=== PATIENT | male | born 1965 | race Caucasian/White ===

== ENCOUNTER 2016-07-16 08:00 | Emergency (ER) | payer OTHER ==
--- NOTE | 2016-07-16 08:27 | ED ---
General Adult HPI - General Chief complaint: Chest Pain Stated complaint: rt side pain from fall Time Seen by Provider: 07/16/16 08:19 Source: patient, RN notes reviewed Mode of arrival: ambulatory Limitations: no limitations - History of Present Illness Initial comments: 50-year-old male presents emergency Department chief complaint right-sided rib, chest pain. Patient states that he fell one week ago and states that he thought the pain would just dissipate but states it hasn't. 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 Patient states it was a mechanical fall. Patient states she has pain with deep inspiration and states he now has a productive cough. Patient denies fever, chills, night sweats. Patient denies any palpitations or syncopal episodes. Patient states he has extreme pain with deep inspiration the right side along his right lateral aspect of the ribs. Patient denies any abdominal pain including nausea , vomiting, diarrhea constipation. Patient denies any ecchymosis. Patient states he was waiting for some bruising but states that he never visualized any. - Related Data Home Medications Medication Instructions Recorded Confirmed Atenolol [Tenormin] 50 mg PO DAILY 07/05/15 07/16/16 Albuterol Inhaler [Ventolin Hfa 1 - 2 puff INHALATION RT-DAILY 07/16/16 07/16/16 Inhaler] Aspirin 81 mg PO DAILY 07/16/16 07/16/16 Beclomethasone Dipropionate [Qvar 1 puff INHALATION RT-BID 07/16/16 07/16/16 40 mcg] Ipratropium [place] [Atrovent Hfa] 2 puff INHALATION RT-TID 07/16/16 07/16/16 Previous Rx's Medication Instructions Recorded Hydrocodone/Acetaminophen [Aniwa 1 tab PO Q6HR PRN #20 tab 07/16/16 5-325] Allergies Allergy/AdvReac Type Severity Reaction Status Date / Time Sulfa (Sulfonamide Allergy Rash/Hives Verified 07/16/16 08:56 Antibiotics) Review of Systems ROS Statement: Those systems with pertinent positive or pertinent negative responses have been documented in the HPI. ROS Other: All systems not noted in ROS Statement are negative. Past Medical History Past Medical History: GERD/Reflux, Hypertension, Memory Impairment, Respiratory Disorder, Seizure Disorder, Sleep Apnea/CPAP/BIPAP History of Any Multi-Drug Resistant Organisms: None Reported Past Surgical History: No Surgical Hx Reported Additional Past Anesthesia/Blood Transfusion Reaction / Comment(s): PT STATES HE HAS NOT HAD ANY SURGERIES Past Psychological History: Anxiety, Depression Smoking Status: Current every day smoker Past Alcohol Use History: Rare Past Drug Use History: None Reported - Past Family History Father Family Medical History: Coronary Artery Disease (CAD), Hypertension, Vascular Disorder Mother Family Medical History: Coronary Artery Disease (CAD), Hypertension, Vascular Disorder General Exam Limitations: no limitations General appearance: alert, in no apparent distress Head exam: Present: atraumatic, normocephalic, normal inspection Neck exam: Present: normal inspection, full ROM. Absent: tenderness, meningismus, lymphadenopathy Respiratory exam: Present: normal lung sounds bilaterally, chest wall tenderness (Moderate tenderness to the right side of the ribs from the level of the nipple to the lower ribs), other (No rash noted on the chest wall, no ecchymosis). Absent: respiratory distress, wheezes, rales, rhonchi, stridor Cardiovascular Exam: Present: regular rate, normal rhythm, normal heart sounds. Absent: systolic murmur, diastolic murmur, rubs, gallop, clicks GI/Abdominal exam: Present: soft, normal bowel sounds. Absent: distended, tenderness, guarding, rebound, rigid Extremities exam: Present: normal inspection, full ROM, normal capillary refill. Absent: tenderness, pedal edema, joint swelling, calf tenderness Back exam: Present: full ROM. Absent: tenderness Neurological exam: Present: alert, oriented X3, CN II-XII intact, reflexes normal. Absent: motor sensory deficit Skin exam: Present: warm, dry, intact, normal color. Absent: rash Course Vital Signs 07/16/16 08:15 Temperature 97.9 F Pulse Rate 86 Respiratory 18 Rate Blood Pressure 152/102 O2 Sat by Pulse 90 L Oximetry Medical Decision Making - Medical Decision Making 50-year-old male presented for fall right rib pain. Patient has fractures through to fifth rib on the right. There is no evidence pneumothorax or secondary infection. Patient fall was one week ago and will be discharged with pain control, instructions for incentive spirometry. Return parameters were discussed. Patient's pulse ox was 90 on triage vitals is 97 on room air and is in no respiratory distress during exam Disposition Clinical Impression: Fall, Multiple rib fractures Disposition: HOME SELF-CARE Condition: Stable Instructions: Rib Fracture (ED) Additional Instructions: Please return to the Emergency Department if symptoms worsen or any other concerns. Prescriptions: Hydrocodone/Acetaminophen [Aniwa 5-325] 1 tab PO Q6HR PRN #20 tab PRN Reason: Pain Time of Disposition: 09:01
--- NOTE | 2016-07-16 08:49 | XR ---
EXAMINATION TYPE: XR ribs RT w pa chest xray DATE OF EXAM: 07/16/2016 8:41 AM COMPARISON: NONE HISTORY: Pain TECHNIQUE: Frontal view of the chest and 5 views of the ribs are submitted. FINDINGS: No sizable pneumothorax. Lungs are clear. There is a deformity of the anterior margin of th e right third rib. Oblique views demonstrate deformity involving the anterolateral right fourth and f ifth rib. IMPRESSION: 1. Findings compatible with mildly displaced fractures anterolateral right third through fifth ribs.
[2016-07-16 09:09] VITALS: BP 172/106; PULSE 78; RESP 16; TEMP 98.5
== END 2016-07-16 09:07 | disposition home or self-care (01) ==
LOC: EC 08:00
DX: S22.41XA Multiple fractures of ribs, right side, initial encounter for closed fracture (principal); I10 Essential (primary) hypertension; Z87.09 Personal history of other diseases of the respiratory system; F17.200 Nicotine dependence, unspecified, uncomplicated; Z82.49 Family history of ischemic heart disease and other diseases of the circulatory system; Z79.51 Long term (current) use of inhaled steroids; Z79.82 Long term (current) use of aspirin; Z79.899 Other long term (current) drug therapy; Z88.2 Allergy status to sulfonamides; W01.0XXA Fall on same level from slipping, tripping and stumbling without subsequent striking against object, initial encounter; Y92.481 Parking lot as the place of occurrence of the external cause
CPT/HCPCS: 99283

== ENCOUNTER 2016-09-22 14:12 | Emergency (ER) | payer OTHER ==
[2016-09-22] MEDS ORDERED: amLODIPine 5 MG TAB PO STA (15:05)
[2016-09-22 15:11] VITALS: RESP 16
--- NOTE | 2016-09-22 15:14 | ED ---
General Adult HPI - General Chief complaint: Recheck/Abnormal Lab/Rx Stated complaint: HBP/170/115 Time Seen by Provider: 09/22/16 14:54 Source: patient, RN notes reviewed, old records reviewed Mode of arrival: ambulatory Limitations: no limitations - History of Present Illness Initial comments: 50-year-old male presenting for evaluation of hypertension. Patient states that he was on the third floor pain clinic today where they found that his blood pressure was high and recommended he go to the ER for evaluation. He states that they were discussing doing nerve injections for his chronic neck and back pain they stated they would not do this due to his high blood pressure. Patient states that he has had 4 separate episodes at the pain clinic where he has been told the same thing that his blood pressure is high. He states he does follow with Dr. Sarkar, but has not recently followed with him regarding his hypertension. He is taking his hypertension medications which include atenolol and amlodipine. He denies any chest pain or shortness of breath or headache at this time. He states that he is not having any active symptoms. He does state that he has chronic back pain. He is not currently taking any medications for his back pain. - Related Data Home Medications Medication Instructions Recorded Confirmed Atenolol [Tenormin] 50 mg PO DAILY 07/05/15 09/22/16 Albuterol Inhaler [Ventolin Hfa 1 - 2 puff INHALATION RT-Q6H PRN 07/16/16 Inhaler] Beclomethasone Dipropionate [Qvar 2 puff INHALATION RT-BID 07/16/16 09/22/16 40 mcg] Ipratropium [place] [Atrovent Hfa] 2 puff INHALATION RT-QID 07/16/16 09/22/16 DULoxetine HCL [Cymbalta] 60 mg PO DAILY 09/22/16 09/22/16 amLODIPine BESYLATE [Amlodipine 5 mg PO DAILY 09/22/16 09/22/16 Besylate] Previous Rx's Medication Instructions Recorded traMADol HCl [Ultram] 50 mg PO Q8HR PRN #20 tab 09/22/16 Allergies Allergy/AdvReac Type Severity Reaction Status Date / Time Sulfa (Sulfonamide Allergy Rash/Hives Verified 09/22/16 14:18 Antibiotics) Review of Systems ROS Statement: Those systems with pertinent positive or pertinent negative responses have been documented in the HPI. ROS Other: All systems not noted in ROS Statement are negative. Past Medical History Past Medical History: COPD, GERD/Reflux, Hypertension, Memory Impairment, Respiratory Disorder, Seizure Disorder, Sleep Apnea/CPAP/BIPAP Additional Past Medical History / Comment(s): possible past mini strokes History of Any Multi-Drug Resistant Organisms: None Reported Past Surgical History: No Surgical Hx Reported Additional Past Anesthesia/Blood Transfusion Reaction / Comment(s): PT STATES HE HAS NOT HAD ANY SURGERIES Past Psychological History: Anxiety, Depression Smoking Status: Current every day smoker Past Alcohol Use History: Rare Past Drug Use History: None Reported - Past Family History Father Family Medical History: Coronary Artery Disease (CAD), Hypertension, Vascular Disorder Mother Family Medical History: Coronary Artery Disease (CAD), Hypertension, Vascular Disorder General Exam - General Exam Comments Initial Comments: General: Awake and Alert. No acute distress. Does not appear acutely ill. Eyes: YUDI, EOM intact. No nystagmus. No scleral icterus. HENT: Atraumatic, normocephalic. Mucous membranes moist. Trachea midline. Neck: The neck is supple, there is no anterior tenderness or JVD. Cardiovascular: Regular rate and rhythm. No murmur, rub, or gallop is appreciated. Distal pulses intact. Respiratory: Lungs are clear to auscultation bilaterally. No wheezes, rales, rhonchi. No respiratory distress. Gastrointestinal: Soft, Nontender. No rebound or guarding. Non-distended. No masses or organomegaly noted. No CVA tenderness. Musculoskeletal: As mild low back tenderness and neck tenderness. Otherwise on the exam with no tenderness. Normal ROM. No gross deformity. No strength deficits. Neurological: A&Ox3. CN II-XII grossly intact, There are no obvious motor or sensory deficits. Coordination appears grossly intact. Speech is normal. Skin: Skin is warm and dry and no rashes or lesions are noted. Psychiatric: Cooperative, appropriate mood & affect, normal judgment. Limitations: no limitations Course Vital Signs 09/22/16 09/22/16 09/22/16 14:15 15:10 15:45 Temperature 96.9 F L 98.7 F Pulse Rate 80 69 72 Respiratory 18 16 16 Rate Blood Pressure 180/89 172/99 167/108 O2 Sat by Pulse 97 96 95 Oximetry Medical Decision Making - Medical Decision Making 50-year-old male with history of chronic back pain presenting for hypertension. Patient does have a history of hypertension which is currently being treated with amlodipine and atenolol. Patient states that he has had follow-up with [facility] in the past but when he has followed with [facility] over the past year he has always had a normal blood pressure. He states he has been taken off of 2 of his his previous 4 medications over the past year. States that he has had 4 separate episodes of high blood pressure at pain clinic evaluations. He is not currently taking any pain medications for his chronic back pain. Patient with asymptomatic hypertension the ED at this time. Given he has known hypertension, he was given additional 5 mg dose of amlodipine. Discussed increasing this to 10 mg daily. Discussed close follow-up with Dr. Sarkar for further titration of his blood pressure medications a blood pressure recheck. Discussed continued follow-up with pain clinic for further pain management. Rx for tramadol was provided as he states this has helped with his pain in the past. Discussed concerning signs symptoms or immediate return to the ED. Patient is agreeable with plan and discharge home. Disposition Clinical Impression: Essential hypertension, Chronic back pain Disposition: HOME SELF-CARE Condition: Stable Instructions: Chronic Hypertension (ED), Chronic Back Pain (ED) Additional Instructions: Please increase your dose of Amlodipine to 10mg daily. Please follow up closely with Dr. Sarkar to manage your blood pressure. Prescriptions: traMADol HCl [Ultram] 50 mg PO Q8HR PRN #20 tab PRN Reason: Pain Referrals: Gertrude Sarkar MD [Primary Care Provider] - 1-2 days Time of Disposition: 15:39
[2016-09-22 15:47] VITALS: BP 167/108; PULSE 72; TEMP 98.7
== END 2016-09-22 15:47 | disposition home or self-care (01) ==
LOC: EC 14:12
DX: I10 Essential (primary) hypertension (principal); M54.9 Dorsalgia, unspecified; M54.2 Cervicalgia; J44.9 Chronic obstructive pulmonary disease, unspecified; F32.9 Major depressive disorder, single episode, unspecified; F41.9 Anxiety disorder, unspecified; F17.200 Nicotine dependence, unspecified, uncomplicated; Z79.51 Long term (current) use of inhaled steroids; Z79.899 Other long term (current) drug therapy; Z88.2 Allergy status to sulfonamides; Z82.49 Family history of ischemic heart disease and other diseases of the circulatory system
CPT/HCPCS: 99211; 99283

== ENCOUNTER → 2016-09-22 | Outpatient (CLI) | payer OTHER ==
[2016-09-22 13:14] VITALS: BP 170/115; PULSE 80; RESP 16; TEMP 97.7
--- NOTE | 2016-09-22 13:36 | P.PN ---
Progress Note - Text Patient returns for followup for chronic neck and low back pain with radiation to head and shoulders, and is complaining of weakness and heaviness in his lower extremities. Patient underwent cervical epidural steroid injection x [address] Walker and did not return after that. He was seen by Dr. Valera who did some occipital nerve blocks and some injections in his neck which did not help him. Patient does not use any opioid medications as he does not like them. . Patient also complains of pain in bilateral wrists and in his low back. Patient denies adverse drug effects from medications. Today, pt denies new-onset weakness, bowel/bladder incontinence, or any other signs or symptoms of cauda equina syndrome. There are no signs of acute intoxication, and no indications of medication diversion or overuse. In addition to above, 13-point review of systems is also negative for chest pain , shortness of breath, changes in vision, changes in hearing, new onset weakness , abdominal pain, diarrhea, extreme fatigue, malaise, fever, skin changes, homicidal or suicidal ideation, or bowel or bladder incontinence. 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 cervical spondylosis without myelopathy 2. cervicogenic headache 3. chronic pain syndrome Plan: 1. Explanation: Opioid and psychological risk scores were reviewed. Diagnoses , prognoses, and multiple treatment options including but not limited to physical therapy, interventional therapies, adjuvant medical therapies, narcotic medication therapies, and surgery were discussed with the patient and all questions were answered to the patient's satisfaction. 2. Opioid agreement: no opioids prescribed today 3. Counseling: The patient was counseled extensively on SMOKING CESSATION, BODY MASS INDEX, EXERCISE. Specifically, the patient was instructed regarding the importance of smoking cessation, obesity, and exercise in the context of both chronic pain and overall health. 4. Procedures: bilateral cervical MBB (C3-C4, C4-C5, C5-C6) 5. Consultations: None 6. Investigations: MRI lumbar spine without contrast and will refer to Dr. Sharif for EMG bilateral lower extremities 7. Medications: none prescribed 8. Disposition: f/u for procedure as scheduled. Patient has extremely high BP today and was advised to seek treatment in the emergency room. He was advised of all risks/benefits/alternatives to doing so, with risks including heart attack, stroke, paralysis, and possible . Patient verbalized understanding. PQRS measures: 1-Patient's medications are documented in the chart. 2-Tobacco use is positive, counseling given 3-Patient has not had a pneumococcal vaccine. 4-Advanced care planning discussed, patient unable to give. 5-Opioid contract NOT signed with the patient as no opioids prescribed. 6-Pain positive, follow-up visit or procedure scheduled 7-Patient's blood pressure measured and documented, and patient will follow up with the primary care due to hypertension. 8-Patient's weight was measured, and body mass index ABOVE the normal limits, and counseling was done. Patient instructed to follow up with PCP. 9-Patient WAS NOT identified as an unhealthy alcohol user.
== END | disposition home or self-care (01) ==
LOC: PNWHC3 12:31
PROVIDERS: ATTEND Anesthesiology
DX: M47.812 Spondylosis without myelopathy or radiculopathy, cervical region (principal); G89.4 Chronic pain syndrome
CPT/HCPCS: 99211

== ENCOUNTER → 2016-10-06 | Outpatient (CLI) | payer OTHER ==
--- NOTE | 2016-10-06 11:57 | MR ---
EXAMINATION TYPE: MR cervical spine wo con DATE OF EXAM: 10/06/2016 11:48 AM COMPARISON: NONE HISTORY: cervical spondylosis Multiplanar MultiSpin echo imaging of the cervical spine was performed. Comparison: 06/20/2015 C2-C3: No evidence for degenerative disc disease. No disc bulge/herniation or protrusion. No Canal stenosis. Foramina are patent bilaterally. C3-C4: There is evidence of mild disc desiccation. Posterocentral disc bulge with mild effacement of the ventral thecal sac. No evidence for cord contact or central stenosis. Degenerative change cervica l apophyseal joints resulting in mild right-sided foraminal encroachment. C4-C5: There is evidence of mild disc desiccation. Posterocentral disc bulge with mild effacement of the ventral thecal sac. No evidence for cord contact or central stenosis. Degenerative change cervica l apophyseal joints resulting in mild right-sided foraminal encroachment. C5-C6: Mild disc desiccation noted. Left paracentral small disc protrusion effaces the ventral thecal sac with minimal ventral CORD contact. No evidence for compressive myelopathy or central stenosis. M ild left-sided foraminal encroachment. C6-C7: Mild disc desiccation. Posterocentral disc protrusion mildly effaces the ventral thecal sac. N o evidence for kyleigh herniation or central stenosis. Mild right foraminal encroachment. C7-T1: No evidence for degenerative disc disease. No disc bulge/herniation or protrusion. No Canal stenosis. Foramina are patent bilaterally. Cervical segments are intact. There is normal alignment. Cervical spinal cord is of normal signal. Craniovertebral junction relationships are within normal limits. IMPRESSION: 1. Stable degenerative disc disease as discussed. 2. Disc bulging and protrusions as noted.
== END | disposition home or self-care (01) ==
LOC: RADMRIMAIN 11:02
PROVIDERS: ATTEND Anesthesiology
DX: M50.00 Cervical disc disorder with myelopathy, unspecified cervical region (principal); R51 Headache; M25.519 Pain in unspecified shoulder
CPT/HCPCS: 72141

== ENCOUNTER 2016-10-27 06:11 | Day surgery (SDC) | payer OTHER ==
[2016-10-23 10:06] VITALS: BMI 26.1
[~2016-10-27 06:11] MED LIST: LACTATED RINGERS 1,000 ML IV SCH
[2016-10-27 06:32] VITALS: TEMP 97.7
[2016-10-27] MEDS ORDERED: LIDOCAINE 1% 20 ML VIAL (10MG/ML) FOR IV START INTRADERMA ONE (06:36)
[2016-10-27] MEDS ORDERED: MIDAZOLAM 2 MG/2 ML VIAL ONE (07:12)
[2016-10-27] MEDS ORDERED: BUPIVACAINE (PF) 0.5% 30 ML VIAL ONE (07:12)
[2016-10-27] MEDS ORDERED: LACTATED RINGERS 1,000 ML IV SCH (07:30)
[2016-10-27] MEDS ORDERED: IV FLUID CONTINUATION 1,000 ML IV ONE (07:45)
--- NOTE | 2016-10-27 07:50 | P.PCN ---
Date of Procedure: 10/27/16 Preoperative Diagnosis: Cervical spondylosis without myelopathy Postoperative Diagnosis: Same as above Procedure(s) Performed: Bilateral cervical medial branch block for C4, C5, and C6 Implants: Anesthesia: other (Moderate sedation) Surgeon: Grace Preston Pathology: none sent Condition: stable Disposition: PACU Indications for Procedure: Operative Findings: Description of Procedure: The patient was seen in the preop holding area consent was obtained then he was brought into the procedure room and placed in the supine position. Skin was prepped with ChloraPrep and draped in a sterile manner. Lidocaine 1% was used to numb the skin up at the target points that were chosen as follows: The center of the trapezoid shaped articular pillars of C4, C5, and C6 vertebra were identified and skin was marked of these areas. I used 25-gauge 3-1/2 inch Quincke spinal needle to go through the skin and to contact bone at the target points mentioned above then I injected 0.5 MLS of 0.5% Marcaine at each level. The right side was done first and then the left side was done in the same manner. Patient tolerated procedure well. No changes in his neurological examination postoperatively. I did not use any steroids for this procedure. Patient received only 2 mg of Versed IV for sedation.
[2016-10-27 07:52] VITALS: RESP 18
--- NOTE | 2016-10-27 07:52 | FL ---
FLUOROSCOPY 9 seconds of fluoroscopy time were utilized during cervical facet injections. 6 images document the p rocedure.
[2016-10-27 08:01] VITALS: BP 145/85; PULSE 65
== END 2016-10-27 08:20 | disposition home or self-care (01) ==
LOC: ORPAIN 06:11
PROVIDERS: ATTEND Anesthesiology
DX: M47.812 Spondylosis without myelopathy or radiculopathy, cervical region (principal); Z88.2 Allergy status to sulfonamides
CPT/HCPCS: 64490; 64491; 64492; 99152; J2250

== ENCOUNTER 2016-11-24 07:54 | Day surgery (SDC) | payer OTHER ==
[2016-11-20 15:45] VITALS: BMI 26.1
[2016-11-24 08:22] VITALS: RESP 18; TEMP 97.5
[2016-11-24] MEDS ORDERED: LIDOCAINE 1% 20 ML VIAL (10MG/ML) FOR IV START INTRADERMA ONE (08:34)
[2016-11-24] MEDS ORDERED: fentaNYL (PF) 50 MCG/ML 2 ML AMP ONE (09:21)
[2016-11-24] MEDS ORDERED: DEXAMETHASONE SOD PHOS (MDV) 100 MG/10 ML VIAL ONE (09:21)
[2016-11-24] MEDS ORDERED: BUPIVACAINE (PF) 0.5% 30 ML VIAL ONE (09:21)
[2016-11-24] MEDS ORDERED: MIDAZOLAM 2 MG/2 ML VIAL ONE (09:21)
--- NOTE | 2016-11-24 09:53 | P.PCN ---
Date of Procedure: 11/24/16 Preoperative Diagnosis: Postoperative Diagnosis: Procedure(s) Performed: PREOPERATIVE DIAGNOSIS:1- Cervical Spondylosis with Facet Arthropathy.without myelopathy. 2-cervicogenic headache POSTOPERATIVE DIAGNOSIS: 1-Cervical Spondylosis Facet Arthropathy. Without myelopathy. 2-cervicogenic headache. PROCEDURES: Diagnostic bilateral C3-4, C4-5 , C5-6, medial branch blocks, with fluoroscopic guidance ANESTHESIA: Local with 1% lidocaine 6 ml ; IV sedation with Versed 2 mg and fentanyl 100 g. EBL: Minimal PROCEDURE INDICATION: The patient with neck pain secondary to cervical arthropathy unresponsive to more conservative treatments. PROCEDURE DESCRIPTION / TECHNIQUE: The patient was seen and identified in the preoperative area. Risks, benefits, complications, and alternatives were discussed with the patient, the patient agreed to proceed with the procedure and signed the consent. IV was started. Vital signs remained stable throughout the procedure. Patient was taken to the OR and time out was completed. The patient was placed in the prone position on the procedure table. A pillow was placed under the patients chest to increase the cervical interlaminar space. The cervical area was prepped and draped in the usual sterile fashion. Critical pause was taken. Vital signs were closely monitored during the procedure. Conscious sedation was used during the procedure to decrease patients anxiety. Using cross-table lateral fluoroscopy, the centroid of the trapezoid of right C3 , C4 , C5 was identified, marked, and localized with 1% lidocaine 1 ml at each level for skin and Sub Q infiltrations . Subsequently, a 22 G 4 spinal needle was advanced guided by fluoroscopy to the centroid of the trapezoid of Right C3, C4 , C5, . Chester tip position was confirmed at the centroid of the trapezoids of Right C3 , C4 , C5 , with anteroposterior fluoroscopy. Subsequently,1,5 ml of preservative-free Bupivacaine 0.5% mixed with Dexamethasone 10 mg and half ml of the mixture was injected after negative aspiration for blood and CSF. Chester was then removed intact the same procedure was repeated at the left C3-4, C4-5, C5-6, levels. COMPLICATIONS: No acute complications. COMMENTS: DISPOSITION / PLANS: The patient was placed in a supine position and transferred to the recovery area in a stable condition for observation and was discharged from the recovery room after meeting discharge criteria. Home discharge instructions given to the patient by the staff. The patient was reexamined prior to discharge. The patient will schedule a follow up in the clinic in 2-4 weeks. Implants: Indications for Procedure: Operative Findings: Description of Procedure:
[2016-11-24] MEDS ORDERED: IV FLUID CONTINUATION 1,000 ML IV ONE (09:57)
[2016-11-24 10:25] VITALS: BP 147/84; PULSE 68
--- NOTE | 2016-11-24 10:56 | FL ---
Fluoroscopy HISTORY: Pain 17 seconds fluoroscopy time supplied to the referring clinician. 4 intraoperative C-arm images docum ent the procedure. See dictated report from anesthesia.
== END 2016-11-24 10:34 | disposition home or self-care (01) ==
LOC: ORPAIN 07:54
PROVIDERS: ATTEND Specialist
DX: M47.812 Spondylosis without myelopathy or radiculopathy, cervical region (principal); M46.92 Unspecified inflammatory spondylopathy, cervical region; I10 Essential (primary) hypertension; J44.9 Chronic obstructive pulmonary disease, unspecified; G47.33 Obstructive sleep apnea (adult) (pediatric); G40.909 Epilepsy, unspecified, not intractable, without status epilepticus; Z88.2 Allergy status to sulfonamides
CPT/HCPCS: 64490; 64491; 64492; 99152; J2250; J3010; J1100

== ENCOUNTER → 2017-01-06 | Outpatient (CLI) | payer OTHER ==
[2017-01-06 13:30] VITALS: BP 136/86; PULSE 70; RESP 18; TEMP 97.6
--- NOTE | 2017-01-06 13:48 | P.PN ---
Progress Note - Text This is a 51-year-old male with neck pain due to cervical spondylosis. The patient did not get any good response to previous interventional pain procedures on the C-spine including cervical epidural steroid injection and cervical medial branch blocks. Has history of migraine headache. He also complains of pain in his left hand that is is likely due to carpal tunnel syndrome especially that he had what seems to be an EMG and he was told so previously. At this point I will increase the patient's dose of Neurontin to 600 mg a day up from 300 mg a day and the patient will continue using baclofen twice a day. We will see the patient 2 months from now.
== END ==
LOC: PNWHC3 12:38
PROVIDERS: ATTEND Anesthesiology
DX: M47.812 Spondylosis without myelopathy or radiculopathy, cervical region (principal)
CPT/HCPCS: 99211

== ENCOUNTER 2017-03-04 15:25 | Emergency (ER) | payer OTHER ==
[2017-03-04 15:40] VITALS: RESP 18; TEMP 97.9
[2017-03-04] MEDS ORDERED: ATENOLOL 25 MG TAB PO STA (16:23)
--- NOTE | 2017-03-04 16:25 | ED ---
General Adult HPI - General Chief complaint: Recheck/Abnormal Lab/Rx Stated complaint: High BP Time Seen by Provider: 03/04/17 16:15 Source: patient, RN notes reviewed Mode of arrival: ambulatory Limitations: no limitations - History of Present Illness Initial comments: 51-year-old male presents emergency Department with chief complaint of high blood pressure. Patient states that he needed a refill of his medication but states that is not ready. Patient is requesting his blood pressure medication. Patient states no takes atenolol 50 morning 25 at nighttime. Patient states just takes amlodipine. Patient denies any chest pain, shortness breath, dizziness, fever, chills. Patient states he is at the pain clinic in which they did order his medications formed. Patient states his prescription only runny for minor tonight. - Related Data Home Medications Medication Instructions Recorded Confirmed Atenolol [Tenormin] 50 mg PO DAILY 07/05/15 03/04/17 Albuterol Inhaler [Ventolin Hfa 1 - 2 puff INHALATION RT-Q6H PRN 07/16/16 Inhaler] Beclomethasone Dipropionate [Qvar 2 puff INHALATION RT-BID 07/16/16 03/04/17 40 mcg] Ipratropium [place] [Atrovent Hfa] 2 puff INHALATION RT-QID 07/16/16 03/04/17 Donepezil [Aricept] 5 mg PO DAILY 10/23/16 03/04/17 Baclofen [Lioresal] 5 mg PO BID 01/06/17 03/04/17 Gabapentin [Neurontin] 100 mg PO TID 01/06/17 03/04/17 Previous Rx's Medication Instructions Recorded tiZANidine HCL [Zanaflex] 4 mg PO Q8HR PRN #90 tab 03/04/17 Allergies Allergy/AdvReac Type Severity Reaction Status Date / Time Sulfa (Sulfonamide Allergy Rash/Hives Verified 03/04/17 15:32 Antibiotics) Review of Systems ROS Statement: Those systems with pertinent positive or pertinent negative responses have been documented in the HPI. ROS Other: All systems not noted in ROS Statement are negative. Past Medical History Past Medical History: COPD, GERD/Reflux, Hypertension, Memory Impairment, Respiratory Disorder, Seizure Disorder, Sleep Apnea/CPAP/BIPAP Additional Past Medical History / Comment(s): possible past mini strokes, STATES LAST SEIZURE 1 & 1/2 YEARS AGO. History of Any Multi-Drug Resistant Organisms: None Reported Past Surgical History: No Surgical Hx Reported Additional Past Anesthesia/Blood Transfusion Reaction / Comment(s): PT STATES HE HAS NOT HAD ANY SURGERIES Past Psychological History: Anxiety, Depression Smoking Status: Current every day smoker Past Alcohol Use History: Rare Past Drug Use History: None Reported - Past Family History Father Family Medical History: Congestive Heart Failure (CHF), Coronary Artery Disease (CAD), Hypertension, Vascular Disorder Mother Family Medical History: Cancer, Coronary Artery Disease (CAD), Hypertension, Vascular Disorder General Exam Limitations: no limitations General appearance: alert, in no apparent distress Head exam: Present: atraumatic, normocephalic, normal inspection Respiratory exam: Present: normal lung sounds bilaterally. Absent: respiratory distress, wheezes, rales, rhonchi, stridor Cardiovascular Exam: Present: regular rate, normal rhythm, normal heart sounds. Absent: systolic murmur, diastolic murmur, rubs, gallop, clicks GI/Abdominal exam: Present: soft, normal bowel sounds. Absent: distended, tenderness, guarding, rebound, rigid Neurological exam: Present: alert, oriented X3, CN II-XII intact Course Vital Signs 03/04/17 15:32 Temperature 97.9 F Pulse Rate 73 Respiratory 18 Rate Blood Pressure 178/110 O2 Sat by Pulse 97 Oximetry Medical Decision Making - Medical Decision Making 51-year-old male presented for mildly elevated blood pressure. Patient is asymptomatic. Patient is out of his medication and just needs his dose. Patient will be given 25 atenolol as he normally takes at this time. Patient will follow up with PCP return parameters were discussed. Disposition Clinical Impression: Hypertension Disposition: HOME SELF-CARE Condition: Stable Instructions: Hypertension (ED) Additional Instructions: Please return to the Emergency Department if symptoms worsen or any other concerns. Referrals: Gertrude Sarkar MD [Primary Care Provider] - 1-2 days Time of Disposition: 16:25
[2017-03-04 16:46] VITALS: BP 152/93; PULSE 85
== END 2017-03-04 16:46 | disposition home or self-care (01) ==
LOC: EC 15:25
DX: I10 Essential (primary) hypertension (principal); F32.9 Major depressive disorder, single episode, unspecified; J44.9 Chronic obstructive pulmonary disease, unspecified; F17.200 Nicotine dependence, unspecified, uncomplicated; Z88.2 Allergy status to sulfonamides; Z79.51 Long term (current) use of inhaled steroids; Z79.899 Other long term (current) drug therapy
CPT/HCPCS: 99283

== ENCOUNTER → 2017-03-04 | Outpatient (CLI) | payer OTHER ==
[2017-03-04 14:08] VITALS: BP 168/108; PULSE 88; RESP 16
--- NOTE | 2017-03-04 14:56 | P.PN ---
Progress Note - Text Patient returns for followup for chronic neck and low back pain with radiation to head and shoulders, and is complaining of weakness and heaviness in his lower extremities. Patient underwent cervical MBB x 2 with little relief. He was seen previously by Dr. Valera who did some occipital nerve blocks and some injections in his neck which did not help him. Patient does not use any opioid medications as he does not like them. Patient also complains of pain in bilateral wrists and in his low back. Patient denies adverse drug effects from medications. Today, pt denies new-onset weakness, bowel/bladder incontinence, or any other signs or symptoms of cauda equina syndrome. There are no signs of acute intoxication, and no indications of medication diversion or overuse. In addition to above, 13-point review of systems is also negative for chest pain , shortness of breath, changes in vision, changes in hearing, new onset weakness , abdominal pain, diarrhea, extreme fatigue, malaise, fever, skin changes, homicidal or suicidal ideation, or bowel or bladder incontinence. 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 cervical spondylosis without myelopathy 2. cervicogenic headache 3. chronic pain syndrome 4. lumbar radic Plan: 1. Explanation: Opioid and psychological risk scores were reviewed. Diagnoses , prognoses, and multiple treatment options including but not limited to physical therapy, interventional therapies, adjuvant medical therapies, narcotic medication therapies, and surgery were discussed with the patient and all questions were answered to the patient's satisfaction. 2. Opioid agreement: no opioids prescribed today 3. Counseling: The patient was counseled extensively on SMOKING CESSATION, BODY MASS INDEX, EXERCISE. Specifically, the patient was instructed regarding the importance of smoking cessation, obesity, and exercise in the context of both chronic pain and overall health. 4. Procedures: LESI series 5. Consultations: None 6. Investigations: None 7. Medications: amlodipine 10 mg #30 with no refills (to get patient to his PCP appt), Zanaflex 4 mg #90 with one refill 8. Disposition: f/u for procedure as scheduled. Patient has extremely high BP today and was advised to seek treatment in the emergency room or to call his PCP right away. He was advised of all risks/benefits/alternatives to doing so, with risks including heart attack, stroke, paralysis, and possible . Patient verbalized understanding. PQRS measures: 1-Patient's medications are documented in the chart. 2-Tobacco use is positive, counseling given 3-Patient has not had a pneumococcal vaccine. 4-Advanced care planning discussed, patient unable to give. 5-Opioid contract NOT signed with the patient as no opioids prescribed. 6-Pain positive, follow-up visit or procedure scheduled 7-Patient's blood pressure measured and documented, and patient will follow up with the primary care due to hypertension. 8-Patient's weight was measured, and body mass index ABOVE the normal limits, and counseling was done. Patient instructed to follow up with PCP. 9-Patient WAS NOT identified as an unhealthy alcohol user.
== END | disposition home or self-care (01) ==
LOC: PNWHC3 13:06
PROVIDERS: ATTEND Anesthesiology
DX: M47.812 Spondylosis without myelopathy or radiculopathy, cervical region (principal); R51 Headache; G89.4 Chronic pain syndrome
CPT/HCPCS: 99211

== ENCOUNTER 2017-03-30 07:19 | Day surgery (SDC) | payer OTHER ==
[2017-03-25 10:14] VITALS: BMI 26.1
[2017-03-30] MEDS ORDERED: LIDOCAINE 1% 20 ML VIAL (10MG/ML) FOR IV START INTRADERMA ONE (07:57)
[2017-03-30 08:03] VITALS: TEMP 97.9
--- NOTE | 2017-03-30 08:44 | P.PCN ---
Date of Procedure: 03/30/17 Procedure(s) Performed: PREOPERATIVE DIAGNOSIS: 1- Lumbar Degenerative Disc Diseases 2-Lumbar spondylosis with Facet arthropathy without myelopathy 3-lumbar radiculopathy. POSTOPERATIVE DIAGNOSIS: 1-Lumber Degenerative Disc Diseases 2-Lumbar spondylosis with Facet arthropathy without myelopathy. 3-lumbar radiculopathy PROCEDURE 1. Lumbar epidural steroid injection under fluoroscopic guidance at the L5-S1 level. 2. Lumbar epidurogram. ANESTHESIA: Local with 1% lidocaine 3 ml and IV sedation with Versed 2 mg , and fentanyle 50 Mcg EBL: Minimal PROCEDURE INDICATION: The patient with low back pain and radiculitis symptoms unresponsive to conservative treatment. Fluoroscopy was used to optimize visualization of the needle placement and to maximize safety. PROCEDURE DESCRIPTION / TECHNIQUE: The patient was seen and identified in the preoperative area. Risks, benefits , complications including but not limited to infections ,bleeding ,allergic reaction to the medications ,nerve damage and not complete pain releife , and alternatives were discussed with the patient. The patient agreed to proceed with the procedure and signed the consent. IV was started, and vital signs were stable. Patient was taken to the OR and time out was completed. The patient was placed in the prone position on procedure table and a pillow was placed under the abdomen to reduce lumbar lordosis. The lumbosacral area was prepped and draped in the usual sterile fashion.ere closely monitored during the procedure. Conscious sedation was used during the procedure to decrease patients anxiety. Vital signs was monitered during the entire procedure. Using anterior-posterior fluoroscopy, the L5-S1 interlaminar space was identified and the skin over this site was marked and then infiltrated with 1% lidocaine subcutaneously. Subsequently, a 20-gauge Tuohy epidural needle was inserted and advanced toward the epidural space using the ``Loss of resistance technique and guided by AP and lateral fluoroscopy. The correct needle position in the epidural space was verified with the injection of 2 mL of the water soluble contrast dye Omnipaque 180 contrast and observing an excellent epidurogram with the epidural spread of the dye, after negative aspiration for blood and CSF and in the absence of paresthesias. Again after negative aspiration, a 6 ml mixture containing 20 mg of Dexamethasone and 2 ml of preservative free Normal Saline, and 2 ml of preservative free lidocaine 1% solution was injected and a washout of epidurogram was seen. Needle was withdrawn intact, skin was cleansed, and bandages were applied. COMPLICATIONS: None DISPOSITION / PLANS: The patient was placed in a supine position and transferred to the recovery area in a stable condition for observation. There was no evidence of lower extremity motor or sensory deficit after the procedure. Patient was discharged from the recovery room after meeting discharge criteria. Home discharge instructions were given to the patient by the staff. The patient was reexamined prior to discharge. The patient will schedule a follow up in the clinic in 2-4 weeks.
[2017-03-30] MEDS ORDERED: IV FLUID CONTINUATION 1,000 ML IV ONE (08:49)
[2017-03-30 09:13] VITALS: BP 133/89; PULSE 62; RESP 16
--- NOTE | 2017-03-30 10:30 | FL ---
Fluoroscopy HISTORY: Pain 2 seconds fluoroscopy time supplied to the referring clinician. 1 intraoperative C-arm images docume nt the procedure. See dictated report from anesthesia.
== END 2017-03-30 09:18 | disposition home or self-care (01) ==
LOC: ORPAIN 07:19
PROVIDERS: ATTEND Specialist
DX: M51.16 Intervertebral disc disorders with radiculopathy, lumbar region (principal); M46.96 Unspecified inflammatory spondylopathy, lumbar region; M47.816 Spondylosis without myelopathy or radiculopathy, lumbar region; Z88.2 Allergy status to sulfonamides
CPT/HCPCS: 62323; J2250; J1100; Q9965; J3010; 99152

== ENCOUNTER 2017-04-27 08:23 | Day surgery (SDC) | payer OTHER ==
[2017-04-22 15:11] VITALS: BMI 26.5
[~2017-04-27 08:23] MED LIST changes: +LACTATED RINGERS 1,000 ML IV ONE; -LACTATED RINGERS 1,000 ML IV SCH
[2017-04-27 08:41] VITALS: RESP 18; TEMP 97.6
[2017-04-27] MEDS ORDERED: IV FLUID CONTINUATION 1,000 ML IV ONE ×2 (08:57→09:23)
--- NOTE | 2017-04-27 09:16 | P.PCN ---
Date of Procedure: 04/27/17 Preoperative Diagnosis: Lumbar radiculopathy Postoperative Diagnosis: Same as above Procedure(s) Performed: Lumbar epidural steroid injection under fluoroscopic guidance Anesthesia: MAC (Conscious sedation with IV fentanyl and Versed) Surgeon: Garce Preston Pathology: none sent Condition: stable Disposition: PACU Description of Procedure: The patient was seen and identified in the preoperative area. Risks, benefits, complications including but not limited to infections ,bleeding ,allergic reaction to the medications ,nerve damage and not complete pain releife , and alternatives were discussed with the patient. The patient agreed to proceed with the procedure and signed the consent. IV was started, and vital signs were stable. Patient was taken to the OR and time out was completed. The patient was placed in the prone position on procedure table and a pillow was placed under the abdomen to reduce lumbar lordosis. The lumbosacral area was prepped and draped in the usual sterile fashion with Betadine 3.Patient was closely monitored during the procedure. Conscious sedation was used during the procedure to decrease patients anxiety. Vital signs were monitered during the entire procedure. Using anterior-posterior fluoroscopy, the L4-5 interlaminar space was identified and the skin over this site was marked and then infiltrated with 1% lidocaine subcutaneously. Subsequently, a 20-gauge Tuohy epidural needle was inserted and advanced toward the epidural space using the Loss of resistance to air technique and guided by AP and lateral fluoroscopyin the left paramedian approach. The correct needle position in the epidural space was verified with the injection of 1 mL of the water soluble contrast dye Omnipaque 180 contrast and observing an excellent epidurogram with the epidural spread of the dye, after negative aspiration for blood and CSF and in the absence of paresthesias. Again after negative aspiration, a 8 ml mixture containing 40 mg of Kenalog and 5 ml of preservative free Normal Saline, and 2 ml of preservative free Marcaine 0.25% solution was injected and a washout of epidurogram was seen. Needle was withdrawn intact, skin was cleansed, and bandages were applied. patient tolerated procedure well and was transferred to PACU in stable condition. COMPLICATIONS: None
[2017-04-27 09:44] VITALS: BP 138/73; PULSE 68
--- NOTE | 2017-04-27 11:55 | FL ---
Fluoroscopy HISTORY: Pain 8 seconds fluoroscopy time supplied to the referring clinician. 2 intraoperative C-arm images docume nt the procedure. See dictated report from anesthesia.
== END 2017-04-27 10:07 | disposition home or self-care (01) ==
LOC: ORPAIN 08:23
PROVIDERS: ATTEND Anesthesiology
DX: M54.16 Radiculopathy, lumbar region (principal); I10 Essential (primary) hypertension; M79.7 Fibromyalgia; G47.33 Obstructive sleep apnea (adult) (pediatric); F41.9 Anxiety disorder, unspecified; F32.9 Major depressive disorder, single episode, unspecified; Z88.2 Allergy status to sulfonamides
CPT/HCPCS: 62323; J2250; J3301; Q9965; J3010

== ENCOUNTER 2017-06-22 09:52 | Day surgery (SDC) | payer OTHER ==
[2017-06-18 09:27] VITALS: BMI 26.1
[~2017-06-22 09:52] MED LIST changes: -LACTATED RINGERS 1,000 ML IV ONE; +LACTATED RINGERS 1,000 ML IV SCH
[2017-06-22] MEDS ORDERED: LIDOCAINE 1% 20 ML VIAL (10MG/ML) FOR IV START INTRADERMA ONE (10:31)
[2017-06-22] MEDS ORDERED: LACTATED RINGERS 1,000 ML IV ONE (10:31)
[2017-06-22 10:38] VITALS: TEMP 98
--- NOTE | 2017-06-22 11:47 | P.PCN ---
Date of Procedure: 06/22/17 Procedure(s) Performed: PREOPERATIVE DIAGNOSIS: 1- Lumbar Degenerative Disc Diseases 2-Lumbar spondylosis with Facet arthropathy without myelopathy POSTOPERATIVE DIAGNOSIS: 1-Lumber Degenerative Disc Diseases 2-Lumbar spondylosis with Facet arthropathy without myelopathy PROCEDURE 1. Lumbar epidural steroid injection under fluoroscopic guidance at the L5-S1 level. 2. Lumbar epidurogram. ANESTHESIA: Local with 1% lidocaine 3 ml and , moderate sedation with intravenous Versed 1 mg ,and fentanyle 50 Mcg EBL: Minimal PROCEDURE INDICATION: The patient with low back pain and radiculitis symptoms unresponsive to conservative treatment. Fluoroscopy was used to optimize visualization of the needle placement and to maximize safety. PROCEDURE DESCRIPTION / TECHNIQUE: The patient was seen and identified in the preoperative area. Risks, benefits , complications including but not limited to infections ,bleeding ,allergic reaction to the medications ,nerve damage and not complete pain releife , and alternatives were discussed with the patient. The patient agreed to proceed with the procedure and signed the consent. IV was started, and vital signs were stable. Patient was taken to the OR and time out was completed. The patient was placed in the prone position on procedure table and a pillow was placed under the abdomen to reduce lumbar lordosis. The lumbosacral area was prepped and draped in the usual sterile fashion.ere closely monitored during the procedure. Conscious sedation was used during the procedure to decrease patients anxiety. Vital signs was monitered during the entire procedure. Using anterior-posterior fluoroscopy, the L5-S1 interlaminar space was identified and the skin over this site was marked and then infiltrated with 1% lidocaine subcutaneously. Subsequently, a 20-gauge Tuohy epidural needle was inserted and advanced toward the epidural space using the ``Loss of resistance technique and guided by AP and lateral fluoroscopy. The correct needle position in the epidural space was verified with the injection of 2 mL of the water soluble contrast dye Omnipaque 180 contrast and observing an excellent epidurogram with the epidural spread of the dye, after negative aspiration for blood and CSF and in the absence of paresthesias. Again after negative aspiration, a 6 ml mixture containing 20 mg of Dexamethasone and 2 ml of preservative free Normal Saline, and 2 ml of preservative free lidocaine 1% solution was injected and a washout of epidurogram was seen. Needle was withdrawn intact, skin was cleansed, and bandages were applied. COMPLICATIONS: None DISPOSITION / PLANS: The patient was placed in a supine position and transferred to the recovery area in a stable condition for observation. There was no evidence of lower extremity motor or sensory deficit after the procedure. Patient was discharged from the recovery room after meeting discharge criteria. Home discharge instructions were given to the patient by the staff. The patient was reexamined prior to discharge. The patient will schedule a follow up in the clinic in 2-4 weeks.
--- NOTE | 2017-06-22 11:59 | FL ---
EXAMINATION TYPE: FL guided pain mgmt statistic DATE OF EXAM: 06/22/2017 HISTORY: Flouroscopy time 1 seconds of fluoroscopy provided. IMPRESSION: 1. Fluoroscopy time.
[2017-06-22 12:03] VITALS: RESP 16
[2017-06-22] MEDS ORDERED: IV FLUID CONTINUATION 1,000 ML IV ONE (12:04)
[2017-06-22 12:17] VITALS: BP 145/91; PULSE 68
== END 2017-06-22 12:28 | disposition home or self-care (01) ==
LOC: ORPAIN 09:52
PROVIDERS: ATTEND Specialist
DX: M47.26 Other spondylosis with radiculopathy, lumbar region (principal); M51.16 Intervertebral disc disorders with radiculopathy, lumbar region
CPT/HCPCS: 62323; J2250; J1100; Q9965; J3010

== ENCOUNTER → 2017-07-27 | Outpatient (CLI) | payer OTHER ==
[2017-07-27 13:31] VITALS: BP 180/109; PULSE 79; RESP 18; TEMP 97.7
--- NOTE | 2017-07-27 13:49 | P.PN ---
Progress Note - Text Progress Note Date: 07/27/17 Patient returns for followup for chronic neck and low back pain with radiation to head and shoulders, and is complaining of weakness and heaviness in his lower extremities. Patient previously underwent cervical MBB x 2 with little relief and more recently LESI x 3 with decent relief. He was seen previously by Dr. Valera who did some occipital nerve blocks and some epidural injections in his neck which helped him somewhat and he is requesting cervical ESIs today. Patient does not use any opioid medications as he previously had problems with opioid addiction. Patient also complains of pain in bilateral wrists and in his low back. Patient denies adverse drug effects from medications. Today, pt denies new-onset weakness, bowel/bladder incontinence, or any other signs or symptoms of cauda equina syndrome. There are no signs of acute intoxication, and no indications of medication diversion or overuse. In addition to above, 13-point review of systems is also negative for chest pain , shortness of breath, changes in vision, changes in hearing, new onset weakness , abdominal pain, diarrhea, extreme fatigue, malaise, fever, skin changes, homicidal or suicidal ideation, or bowel or bladder incontinence. 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 cervical spondylosis without myelopathy 2. cervicogenic headache 3. chronic pain syndrome 4. lumbar radic Plan: 1. Explanation: Opioid and psychological risk scores were reviewed. Diagnoses , prognoses, and multiple treatment options including but not limited to physical therapy, interventional therapies, adjuvant medical therapies, narcotic medication therapies, and surgery were discussed with the patient and all questions were answered to the patient's satisfaction. 2. Opioid agreement: no opioids prescribed today 3. Counseling: The patient was counseled extensively on SMOKING CESSATION, BODY MASS INDEX, EXERCISE. Specifically, the patient was instructed regarding the importance of smoking cessation, obesity, and exercise in the context of both chronic pain and overall health. 4. Procedures: PAULIE series 5. Consultations: None 6. Investigations: None 7. Medications: none prescribed 8. Disposition: f/u for procedure as scheduled. Patient has extremely high BP today and was advised to seek treatment in the emergency room or to call his PCP right away. He was advised of all risks/benefits/alternatives to doing so, with risks including heart attack, stroke, paralysis, and possible . Patient verbalized understanding. PQRS measures: 1-Patient's medications are documented in the chart. 2-Tobacco use is positive, counseling given 3-Patient has not had a pneumococcal vaccine. 4-Advanced care planning discussed, patient unable to give. 5-Opioid contract NOT signed with the patient as no opioids prescribed. 6-Pain positive, follow-up visit or procedure scheduled 7-Patient's blood pressure measured and documented, and patient will follow up with the primary care due to hypertension. 8-Patient's weight was measured, and body mass index ABOVE the normal limits, and counseling was done. Patient instructed to follow up with PCP. 9-Patient WAS NOT identified as an unhealthy alcohol user.
== END | disposition home or self-care (01) ==
LOC: PNWHC3 13:01
PROVIDERS: ATTEND Anesthesiology
DX: G89.4 Chronic pain syndrome (principal); M54.2 Cervicalgia; M47.812 Spondylosis without myelopathy or radiculopathy, cervical region; M54.16 Radiculopathy, lumbar region; R51 Headache; Z72.0 Tobacco use; Z71.6 Tobacco abuse counseling
CPT/HCPCS: 99211

== ENCOUNTER → 2017-08-24 | Day surgery (SDC) | payer OTHER ==
[2017-08-19 09:44] VITALS: BMI 26.1
[~2017-08-24] MED LIST changes: +IV FLUID CONTINUATION 1,000 ML IV ONE
[2017-08-24 07:59] VITALS: RESP 16; TEMP 98.3
--- NOTE | 2017-08-24 09:12 | P.PCN ---
Date of Procedure: 08/24/17 Procedure(s) Performed: . PROCEDURE 1. Cervical epidural steroid injection under fluoroscopic guidance, C7-T1 2. Cervical epidurogram. PREOPERATIVE DIAGNOSIS: 1- Cervicogenic headache 2-cervical spondylosis with cervical Facet arthropathy without myelopathy POSTOPERATIVE DIAGNOSIS: : 1- Cervicogenic headache 2-cervical spondylosis with cervical Facet arthropathy without myelopathy ANESTHESIA: Local anesthesia with 1% lidocaine 3 ml and IV sedation with Versed 1 mg and Fentanyl 50 mcg. EBL 0 PROCEDURE INDICATION: The patient with neck pain and radiculitis unresponsive to conservative treatment consents for procedure. PROCEDURE DESCRIPTION / TECHNIQUE: The patient was seen and identified in the preoperative area. Risks, benefits, complications, including but not limited to infections ,bleeding , allergic reactions to the medications ,and not complete pain releife, and alternatives were discussed with the patient, the patient agreed to proceed with the procedure and signed the consent. Patient was taken to the OR and time out was completed. The patient was placed in the prone position on the procedure table. A pillow was placed under the patients chest to increase the cervical interlaminar space. The cervical area was prepped and draped in the usual sterile fashion. Vital signs were closely monitored during the procedure. Conscious sedation was used during the procedure to decrease patients anxiety. Using anterior-posterior fluoroscopy, the C7-T1 interlaminar space was identified and the skin over this site was marked and then infiltrated with 1% lidocaine subcutaneously. Subsequently, a 20-gauge 3-1/2-inch Tuohy epidural needle was inserted and advanced toward the epidural space by means of the `` hanging-drop technique and guided by AP and lateral fluoroscopy. The correct needle position in the epidural space was verified with the injection of 2 mL of the water soluble contrast dye Isovue-180 and observing an excellent epidurogram with the epidural spread of the dye, after negative aspiration for blood and CSF and in the absence of paresthesias. Again after negative aspiration, mixture containing 20 mg Dexamethasone and 2 ml of preservative- free normal saline injected and a washout of epidurogram was seen. Needle was withdrawn intact, skin was cleansed, and bandages were applied. Complications= none. Disposition= patient was placed in supine position and transferred to the recovery room area in stable condition and there was no evidence of upper or lower extremity motor or sensory deficit after the procedure patient was discharged from recovery room after discharge criteria met and home discharge instructions was given by the staff and patient will follow with the pain clinic in 2-4 weeks
[2017-08-24 09:44] VITALS: BP 144/91; PULSE 68
--- NOTE | 2017-08-24 10:43 | FL ---
EXAMINATION TYPE: FL guided pain mgmt statistic DATE OF EXAM: 08/24/2017 HISTORY: Flouroscopy time 6 seconds of fluoroscopy provided. IMPRESSION: 1. Fluoroscopy time.
== END | disposition home or self-care (01) ==
LOC: ORPAIN 07:21
PROVIDERS: ATTEND Specialist
DX: M47.23 Other spondylosis with radiculopathy, cervicothoracic region (principal); J44.9 Chronic obstructive pulmonary disease, unspecified; R51 Headache; G47.30 Sleep apnea, unspecified; Z88.2 Allergy status to sulfonamides
CPT/HCPCS: 62321; J2250; J1100; Q9965; J3010; 99152

== ENCOUNTER 2017-09-28 06:29 | Day surgery (SDC) | payer OTHER ==
[2017-09-23 09:52] VITALS: BMI 25.8
[~2017-09-28 06:29] MED LIST changes: -IV FLUID CONTINUATION 1,000 ML IV ONE
[2017-09-28] MEDS ORDERED: LIDOCAINE 1% 20 ML VIAL (10MG/ML) FOR IV START INTRADERMA ONE (07:26)
[2017-09-28 07:30] VITALS: TEMP 97.9
--- NOTE | 2017-09-28 07:47 | P.PCN ---
Date of Procedure: 09/28/17 Procedure(s) Performed: . PROCEDURE 1. Cervical epidural steroid injection under fluoroscopic guidance, C7-T1 2. Cervical epidurogram. PREOPERATIVE DIAGNOSIS: 1- Cervicogenic headache 2--cervical spondylosis with cervical Facet arthropathy without myelopathy POSTOPERATIVE DIAGNOSIS: : Same as preop diagnosis ANESTHESIA: Local anesthesia with 1% lidocaine and IV sedation with Versed 1 mg and Fentanyl 50 mcg. EBL 0 PROCEDURE INDICATION: The patient with neck pain and headache, unresponsive to conservative treatment consents for procedure. PROCEDURE DESCRIPTION / TECHNIQUE: The patient was seen and identified in the preoperative area. Risks, benefits, complications, including but not limited to infections ,bleeding , allergic reactions to the medications ,and not complete pain releife, and alternatives were discussed with the patient, the patient agreed to proceed with the procedure and signed the consent. Patient was taken to the OR and time out was completed. The patient was placed in the prone position on the procedure table. A pillow was placed under the patients chest to increase the cervical interlaminar space. The cervical area was prepped and draped in the usual sterile fashion. Vital signs were closely monitored during the procedure. Conscious sedation was used during the procedure to decrease patients anxiety. Using anterior-posterior fluoroscopy, the C7-T1 interlaminar space was identified and the skin over this site was marked and then infiltrated with 1% lidocaine subcutaneously. Subsequently, a 20-gauge 3-1/2-inch Tuohy epidural needle was inserted and advanced toward the epidural space by means of the `` hanging-drop technique and guided by AP and lateral fluoroscopy. The correct needle position in the epidural space was verified with the injection of 2 mL of the water soluble contrast dye Isovue-200 and observing an excellent epidurogram with the epidural spread of the dye, after negative aspiration for blood and CSF and in the absence of paresthesias. Again after negative aspiration, mixture containing 20 mg Dexamethasone and 2 ml of preservative- free normal saline injected and a washout of epidurogram was seen. Needle was withdrawn intact, skin was cleansed, and bandages were applied. Complications= none. Disposition= patient was placed in supine position and transferred to the recovery room area in stable condition and there was no evidence of upper or lower extremity motor or sensory deficit after the procedure patient was discharged from recovery room after discharge criteria met and home discharge instructions was given by the staff and patient will follow with the pain clinic in 2-4 weeks
[2017-09-28] MEDS ORDERED: IV FLUID CONTINUATION 700 ML IV ONE (07:51)
[2017-09-28 07:58] VITALS: RESP 18
[2017-09-28 08:20] VITALS: BP 149/81; PULSE 60
--- NOTE | 2017-09-28 09:40 | FL ---
Fluoroscopy HISTORY: Pain 2 seconds fluoroscopy time supplied to the referring clinician. 1 intraoperative C-arm images docume nt the procedure. See dictated report from anesthesia.
== END 2017-09-28 08:30 | disposition home or self-care (01) ==
LOC: ORPAIN 06:29
PROVIDERS: ATTEND Specialist
DX: M47.812 Spondylosis without myelopathy or radiculopathy, cervical region (principal); Z88.2 Allergy status to sulfonamides; I10 Essential (primary) hypertension; J44.9 Chronic obstructive pulmonary disease, unspecified; F32.9 Major depressive disorder, single episode, unspecified; K21.9 Gastro-esophageal reflux disease without esophagitis; R51 Headache
CPT/HCPCS: 62321; J2250; J1100; J3010; Q9966

== ENCOUNTER 2017-10-26 08:27 | Day surgery (SDC) | payer OTHER ==
[2017-10-21 11:50] VITALS: BMI 25.8
[2017-10-26] MEDS ORDERED: LACTATED RINGERS 1,000 ML IV ONE (09:41)
[2017-10-26] MEDS ORDERED: LIDOCAINE 1% 20 ML VIAL (10MG/ML) FOR IV START INTRADERMA ONE (09:41)
[2017-10-26 09:44] VITALS: RESP 16; TEMP 97.9
[2017-10-26] MEDS ORDERED: IV FLUID CONTINUATION 1,000 ML IV ONE (10:05)
[2017-10-26 10:22] VITALS: BP 155/88; PULSE 69
--- NOTE | 2017-10-26 10:38 | FL ---
Fluoroscopy HISTORY: Pain 1 seconds fluoroscopy time supplied to the referring clinician. 1 intraoperative C-arm images docume nt the procedure. See dictated report from anesthesia.
--- NOTE | 2017-11-03 15:26 | P.PCN ---
Date of Procedure: 10/26/17 Surgeon: Bob De Los Santos Description of Procedure: PREOPERATIVE DIAGNOSIS: Cervical radiculopathy Cervical degenerative disc disease POSTOPERATIVE DIAGNOSIS: Cervical radiculopathy Cervical degenerative disc disease PROCEDURE Cervical neural steroid injection under fluoroscopic guidance at the C7-T1 interspace. ANESTHESIA: Local with 1% lidocaine 3 ml and IV sedation with Versed 2 mg EBL: Minimal PROCEDURE INDICATION: The patient with cervical radicular symptoms symptoms unresponsive to conservative treatment. Fluoroscopy was used to optimize visualization of the needle placement and to maximize safety. He has a disc bulge at C5 6. He is undergone previous cervical medial branch nerve blocks which have not been helpful for him. This is his second cervical epidural steroid injection. He reported good benefit with this first procedure. Plates of pain in his neck that radiates down his arms and his hands. He also has numbness in his arms and hands. PROCEDURE DESCRIPTION / TECHNIQUE: The patient was seen and identified in the preoperative area. Risks, benefits , complications including but not limited to infections ,bleeding ,allergic reaction to the medications ,nerve damage and incomplete pain relief, and alternatives were discussed with the patient. The patient agreed to proceed with the procedure and signed the consent. IV was started, and vital signs were stable. Patient was taken to the OR and time out was completed. The patient was placed in the prone position on procedure table and a pillow was placed under the chest area.. The cervical area was prepped and draped in the usual sterile fashion. Conscious sedation was used during the procedure to decrease patient s anxiety. Vital signs was monitered during the entire procedure. Using anterior-posterior fluoroscopy, the C7-T1 interlaminar space was identified and the skin over this site was marked and then infiltrated with 1% lidocaine subcutaneously. Subsequently, a 20-gauge Tuohy epidural needle was inserted and advanced toward the epidural space using the loss of resistance technique and guided by AP and lateral fluoroscopy. The correct needle position in the epidural space was verified with the injection of contrast and observing an excellent epidurogram with the epidural spread of the dye, after negative aspiration for blood and CSF and in the absence of paresthesias. Again after negative aspiration, a 4 ml mixture containing 20 mg of Dexamethasone was injected. Needle was withdrawn intact, skin was cleansed, and bandages were applied. COMPLICATIONS: None DISPOSITION / PLANS: The patient was placed in a supine position and transferred to the recovery area in a stable condition for observation. There was no evidence of lower extremity motor or sensory deficit after the procedure. Patient was discharged from the recovery room after meeting discharge criteria. Home discharge instructions were given to the patient by the staff. The patient was reexamined prior to discharge. The patient will schedule a follow up in the clinic in 2-4 weeks.
== END 2017-10-26 10:34 | disposition home or self-care (01) ==
LOC: ORPAIN 08:27
PROVIDERS: ATTEND Pain Medicine Pain Medicine
DX: M50.10 Cervical disc disorder with radiculopathy, unspecified cervical region (principal)
CPT/HCPCS: 62321; J2250; J1100; 99211

== ENCOUNTER → 2017-11-17 | Outpatient (CLI) | payer OTHER ==
[2017-11-17 14:34] VITALS: BP 143/97; PULSE 69; RESP 20
--- NOTE | 2017-11-17 14:49 | P.PN ---
Progress Note - Text Progress Note Date: 11/17/17 Patient returns for followup for chronic neck and low back pain with radiation to head and shoulders, and is complaining of weakness and heaviness in his lower extremities. Patient recently underwent PAULIE x 3, last in October, as he did get relief from these when they were done by Dr. Valera, but he has had only 3- 4 days' relief from all procedures and is miserable. Patient does not use any opioid medications as he previously had problems with opioid addiction. Patient denies adverse drug effects from medications. Today, pt denies new-onset weakness, bowel/bladder incontinence, or any other signs or symptoms of cauda equina syndrome. There are no signs of acute intoxication, and no indications of medication diversion or overuse. In addition to above, 13-point review of systems is also negative for chest pain , shortness of breath, changes in vision, changes in hearing, new onset weakness , abdominal pain, diarrhea, extreme fatigue, malaise, fever, skin changes, homicidal or suicidal ideation, or bowel or bladder incontinence. Vital Signs: Reviewed in EMR Gen: WDWN, AAOx3, NAD HEENT: NCAT, EOMI, hearing grossly normal Pulm: resp unlabored Abd: soft, NT, ND Neck: supple, trachea midline ROM in flexion cervical spine: reduced ROM in extension cervical spine: reduced Cervical paravertebral tenderness: + Cervical Facet tenderness: + bilateral Spurling's: + RUE > LUE Upper extremity: decreased labor economist strength secondary to pain Imaging: Reviewed in EMR Assessment: 1. cervical spondylosis without myelopathy 2. cervicogenic headache 3. chronic pain syndrome 4. lumbar radiculitis Plan: 1. Explanation: Opioid and psychological risk scores were reviewed. Diagnoses , prognoses, and multiple treatment options including but not limited to physical therapy, interventional therapies, adjuvant medical therapies, narcotic medication therapies, and surgery were discussed with the patient and all questions were answered to the patient's satisfaction. 2. Opioid agreement: no opioids prescribed today 3. Counseling: The patient was counseled extensively on SMOKING CESSATION, BODY MASS INDEX, EXERCISE. Specifically, the patient was instructed regarding the importance of smoking cessation, obesity, and exercise in the context of both chronic pain and overall health. 4. Procedures: none for now 5. Consultations: None 6. Investigations: None 7. Medications: change Flexeril to Robaxin 750 mg TID #90 with one refill 8. Disposition: f/u 4-5 weeks. Patient to research suboxone, which would likely be very beneficial for him given his chronic pain and history of opioid addiction. PQRS measures: 1-Patient's medications are documented in the chart. 2-Tobacco use is positive, counseling given 3-Patient has not had a pneumococcal vaccine. 4-Advanced care planning discussed, patient unable to give. 5-Opioid contract NOT signed with the patient as no opioids prescribed. 6-Pain positive, follow-up visit or procedure scheduled 7-Patient's blood pressure measured and documented, and patient will follow up with the primary care due to hypertension. 8-Patient's weight was measured, and body mass index ABOVE the normal limits, and counseling was done. Patient instructed to follow up with PCP. 9-Patient WAS NOT identified as an unhealthy alcohol user.
== END | disposition home or self-care (01) ==
LOC: PNWHC3 14:00
PROVIDERS: ATTEND Anesthesiology
DX: G89.4 Chronic pain syndrome (principal); M47.812 Spondylosis without myelopathy or radiculopathy, cervical region; R51 Headache; M54.16 Radiculopathy, lumbar region; Z79.899 Other long term (current) drug therapy; Z72.0 Tobacco use
CPT/HCPCS: 99211

== ENCOUNTER → 2017-12-15 | Outpatient (CLI) | payer OTHER ==
[2017-12-15 15:30] VITALS: BP 152/97; PULSE 80; RESP 16
--- NOTE | 2017-12-15 15:51 | P.PAINPG ---
Subjective Progress Note Date: 12/15/17 This is 51 years old male with a chronic history of severe neck pain diagnosed with cervical spondylosis and cervicogenic headache, we have done an interventional pain procedure medial branch blocks and cervical epidural steroid injections he reported that he had only short-term benefit from the procedures, and he had physical therapy with only minimal or no benefit from it , he continued to have severe neck pain, intensity of the pain interfering with his quality of life and interfering with his activity of daily living, is currently on Robaxin 750 mg 3 times a day, he has minimal benefit from it, he was referred to Suboxone clinic but he had no appointment.yet, he denies any motor or sensory deficit he denies any change in the bowel movement or urination and denies any fever or night sweats Objective - Vital Signs Vital signs: Vital Signs Temp Pulse 80 12/15/17 15:27 Resp 16 12/15/17 15:27 BP 152/97 12/15/17 15:27 Pulse Ox 97 12/15/17 15:27 Intake & Output 12/14/17 12/15/17 12/15/17 18:59 06:59 18:59 Weight 81.647 kg - Exam Physical Examinations : 1-Constitutiona : Cooperative , not in acute distress . 2-HEENT : nech ; supple , no Lymphadenopathy , normal thyroid size . eyes : no ptosis , no icterus , no photophobia . ENT : normal of hearing , normal oropharynx , no Thrush . 3- Respiratory : Chest clear to auscultations Bilaterally , no wheezing , no Rhonchi . 4- Cardiovascular : regular rate and rhythem , S1 , S2 , no S3 , no S4. 5- Gastrointestinal : abdomen soft no tenderness , bowel sounds , no organomegally . 6- Genitourinary : Defferred . 7- neurologic : Cranial nerve II to XII intact , no focal neurological deffecit . 8-psychatric : alert , oriented X 3 , appropriate affect , intact judgment and insight . 9-Lymphatic : no Lymphadenopathy . 10- musculoskeltal : cervical spine = motor stregnth in the deltoid and biceps, motor stregnth biceps and the wrist extensors (C6) . motor stregnth in the triceps muscle . deep tendon reflexes normal at the biceps Right , Left normal at the brachioradia Right , Left Normal at the triceps Right ,Left cervical facet loading test positive. , Multiple trigger point identified in the cervical paravertebral muscles trapezius muscles and rhomboid muscles Lumber spine = normal moter stegnth lower extremities ,thigh and legs .10/10 Assessment and Plan Plan: Assessment and plan= Chronic severe neck pain secondary to cervical spondylosis, he had short- term benefit for cervical epidural steroid injection and he had no benefit from diagnostic medial branch block He had no benefit from physical therapy, the patient having symptoms of myofascial component patient could benefit from trigger point injections and cervical paravertebral muscles and trapezius muscles and rhomboid muscles, Patient given prescription for Celebrex 200 mg daily, Robaxin 750 mg 3 times a day And he will be scheduled to have trigger point injections Time with Patient: Less than 30 PQRS Measure Charge Sheet Measure #130: Documentation of Current Meds in Medical Chart: Patient's medications documented in chart Measure #226: Tobacco Use: Screen & Cessation Intervention: Pt screened for tobacco use AND intervention given Measure #111: Pneumonia Vaccination: Pneumococcal vaccine NOT administered or previously given Measure #47: Advance Care Plan: Advance care planning discussed & documented, plan or surrogate given Measure #412: Opioid Treatment Agreement: No documentation of signed opioid treatment agreement Measure #408: Opioid Therapy Follow-up Evaluation: Patient had NO f/u eval minimum every 3 months during opioid therapy Measure #317: Preventitive Care & Scrn High Bld Press & F/U: Pre-hypertensive or hypertensive BP documented, pt will f/u with PCP Measure #128: Body Mass Index (BMI) Screening & Follow-up: BMI documented ABOVE normal parameters - f/u documented Measure #131: Pain Assessment & Follow-up: Pain positive & plan documented, Follow-up scheduled Measure #431: Unhealthy Alcohol Use Preventative Care & Scrn: Patient not identified as an unhealthy alcohol user PQRS Narrative: Smoking Status Current every day smoker Do You Want the Pneumonia Vaccine Up to Date Vaccine AT THIS TIME? Blood Pressure 152/97 Pain Intensity [Neck] 7 Scale Used Numeric (1 - 10) Hx Alcohol Use (MH) Yes: very rare Home Medications: Ambulatory Orders Albuterol Inhaler [Ventolin Hfa Inhaler] 1 - 2 puff INHALATION RT-Q6H PRN Beclomethasone Dipropionate [Qvar 40 mcg] 2 puff INHALATION RT-BID 07/16/16 Ipratropium [place] [Atrovent Hfa] 2 puff INHALATION RT-QID 07/16/16 Donepezil [Aricept] 10 mg PO HS 03/04/17 Sertraline [Zoloft] 50 mg PO HS 03/25/17 amLODIPine [Norvasc] 10 mg PO QAM 03/25/17 Metoprolol Tartrate 25 mg PO HS 03/30/17 Metoprolol Tartrate [Lopressor] 50 mg PO DAILY 03/30/17 Cyclobenzaprine [Flexeril] 10 mg PO TID #20 tab 05/14/17 Aspirin 81 mg PO QAM 07/27/17 Celecoxib [CeleBREX] 200 mg PO DAILY PRN #30 cap 12/15/17 Methocarbamol [Robaxin] 750 mg PO TID PRN 30 Days #90 tab 12/15/17 Controlled Substance Measures - Controlled Substance Measures Is patient prescribed a controlled substance at discharge?: No When asked, does pt state using other controlled substances?: No If prescribed controlled substance>3 days was MAPS reviewed?: No If Rx opioid, was Start Talking consent form obtained?: No If opioid is for acute pain is fill amount 7 days or less?: No Was information provided regarding opioid addiction?: No
== END ==
LOC: PNWHC3 14:27
PROVIDERS: ATTEND Specialist
DX: G89.29 Other chronic pain (principal); M47.812 Spondylosis without myelopathy or radiculopathy, cervical region; M54.2 Cervicalgia; F17.200 Nicotine dependence, unspecified, uncomplicated; Z79.899 Other long term (current) drug therapy; Z79.82 Long term (current) use of aspirin; Z79.1 Long term (current) use of non-steroidal anti-inflammatories (NSAID)
CPT/HCPCS: 99211

== ENCOUNTER 2017-12-28 06:08 | Day surgery (SDC) | payer OTHER ==
[2017-12-22 15:26] VITALS: BMI 25.8
[2017-12-28 06:41] VITALS: RESP 18; TEMP 97.6
--- NOTE | 2017-12-28 07:22 | P.PCN ---
Date of Procedure: 12/28/17 Preoperative Diagnosis: Myofascial pain in the cervical and lumbar paravertebral musculature Postoperative Diagnosis: Same as above Procedure(s) Performed: Trigger point injection in the cervical paravertebral musculature and lumbar paravertebral musculature Anesthesia: none Surgeon: Grace Preston Pathology: none sent Condition: stable Disposition: PACU Description of Procedure: The patient was seen in the preop holding area consent was obtained then he was brought into the procedure room and placed in prone position. Skin was prepped with ChloraPrep. The trigger points were marked on the skin and target the paravertebral musculature of the cervical and lumbar area including the trapezius muscles bilaterally and latissimus dorsi bilaterally. 1 mL of a mixture of 9 MLS ropivacaine 0.5% +40 mg of Depo-Medrol was injected in each trigger point. A total of 10 trigger points were injected. Patient tolerated procedure well. He is scheduled for a follow-up in the pain clinic in a few weeks.
[2017-12-28 07:27] VITALS: BP 138/87; PULSE 63
== END 2017-12-28 07:48 | disposition home or self-care (01) ==
LOC: ORPAIN 06:08
PROVIDERS: ATTEND Anesthesiology
DX: G89.29 Other chronic pain (principal); M79.1 Myalgia; M47.892 Other spondylosis, cervical region; F17.200 Nicotine dependence, unspecified, uncomplicated; Z79.82 Long term (current) use of aspirin; Z79.51 Long term (current) use of inhaled steroids; Z79.899 Other long term (current) drug therapy; Z88.2 Allergy status to sulfonamides
CPT/HCPCS: 20553; J1030

== ENCOUNTER → 2018-01-26 | Outpatient (CLI) | payer OTHER ==
[2018-01-26 13:51] VITALS: PULSE 76; RESP 16
--- NOTE | 2018-01-27 11:22 | P.PAINPG ---
Subjective Progress Note Date: 01/26/18 This is 52 years old male with a chronic history of severe neck pain and low back pain, diagnosed with cervical and lumbar spondylosis, cervical and lumbar myofascial pain syndrome, recently we have done trigger point injection in the cervical and lumbar area, which helped his pain significantly, it is getting Robaxin 750 mg 3 times a day and Celebrex 200 mg daily, he denies any motor or sensory deficits he denies any change in the bowel movement or urination, no fever or night sweats Objective - Vital Signs Vital signs: Vital Signs Temp Pulse 76 01/26/18 13:39 Resp 16 01/26/18 13:39 BP Pulse Ox 96 01/26/18 13:39 Intake & Output 01/26/18 01/27/18 01/27/18 18:59 06:59 18:59 Weight 82.554 kg - Exam Physical Examinations : 1-Constitutiona : Cooperative , not in acute distress . 2-HEENT : nech ; supple , no Lymphadenopathy , normal thyroid size . eyes : no ptosis , no icterus , no photophobia . ENT : normal of hearing , normal oropharynx , no Thrush . 3- Respiratory : Chest clear to auscultations Bilaterally , no wheezing , no Rhonchi . 4- Cardiovascular : regular rate and rhythem , S1 , S2 , no S3 , no S4. 5- Gastrointestinal : abdomen soft no tenderness , bowel sounds , no organomegally . 6- Genitourinary : Defferred . 7- neurologic : Cranial nerve II to XII intact , no focal neurological deffecit . 8-psychatric : alert , oriented X 3 , appropriate affect , intact judgment and insight . 9-Lymphatic : no Lymphadenopathy . 10- musculoskeltal : Cervical Spine motor stregnth in the deltoid and biceps, normal right side , normal Left side motor stregnth biceps and the wrist extensors normal right side ,normal left side . motor stregnth in the triceps muscle . normal Right side , normal Left side deep tendon reflexes normal at the biceps , normal at Brachioradialis , normal at triceps. positive cervical facet loading test . Multiple trigger points and cervical paravertebral muscles, trapezius and rhomboid muscles Lumber spine moter stegnth lower extremities ,thigh and legs 5/5 Right side , 5/5 Left side multible trigger points in the lumbar paravertebral muscles Assessment and Plan Plan: Cisplatin and plan= cervical and lumbar spondylosis Cervical and lumbar myofascial pain syndrome. Patient could benefit from trigger point injections, cervical and lumbar area Ascription refill for Robaxin 750 every 8 hours dispense 90 with 1 refill, he will follow up with the pain clinic in 2 months Time with Patient: Less than 30 PQRS Measure Charge Sheet Measure #130: Documentation of Current Meds in Medical Chart: Patient's medications documented in chart Measure #226: Tobacco Use: Screen & Cessation Intervention: Pt screened for tobacco use AND intervention given Measure #111: Pneumonia Vaccination: Pneumococcal vaccine NOT administered or previously given Measure #47: Advance Care Plan: Advance care planning discussed & documented, pt chose/unable to give Measure #412: Opioid Treatment Agreement: No documentation of signed opioid treatment agreement Measure #408: Opioid Therapy Follow-up Evaluation: Patient had NO f/u eval minimum every 3 months during opioid therapy Measure #317: Preventitive Care & Scrn High Bld Press & F/U: Pre-hypertensive or hypertensive BP documented, pt will f/u with PCP Measure #128: Body Mass Index (BMI) Screening & Follow-up: BMI documented ABOVE normal parameters - f/u documented Measure #131: Pain Assessment & Follow-up: Pain positive & plan documented, Follow-up scheduled Measure #431: Unhealthy Alcohol Use Preventative Care & Scrn: Patient not identified as an unhealthy alcohol user PQRS Narrative: Smoking Status Current every day smoker Do You Want the Pneumonia No Vaccine AT THIS TIME? Pain Intensity [Bilateral 7 Lower Back] Scale Used Numeric (1 - 10) Hx Alcohol Use (MH) Yes: very rare Home Medications: Ambulatory Orders Albuterol Inhaler [Ventolin Hfa Inhaler] 1 - 2 puff INHALATION RT-Q6H PRN Beclomethasone Dipropionate [Qvar 40 mcg] 2 puff INHALATION RT-BID 07/16/16 Ipratropium [place] [Atrovent Hfa] 2 puff INHALATION RT-QID 07/16/16 Donepezil [Aricept] 10 mg PO HS 03/04/17 Sertraline [Zoloft] 50 mg PO HS 03/25/17 amLODIPine [Norvasc] 10 mg PO QAM 03/25/17 Metoprolol Tartrate 25 mg PO HS 03/30/17 Metoprolol Tartrate [Lopressor] 50 mg PO DAILY 03/30/17 Aspirin 81 mg PO QAM 07/27/17 Celecoxib [CeleBREX] 200 mg PO DAILY PRN #30 cap 12/15/17 Methocarbamol [Robaxin] 750 mg PO TID PRN 30 Days #90 tab 12/15/17 Controlled Substance Measures - Controlled Substance Measures Is patient prescribed a controlled substance at discharge?: No When asked, does pt state using other controlled substances?: No If prescribed controlled substance>3 days was MAPS reviewed?: No If Rx opioid, was Start Talking consent form obtained?: No If opioid is for acute pain is fill amount 7 days or less?: No Was information provided regarding opioid addiction?: No
== END | disposition home or self-care (01) ==
LOC: PNWHC3 13:33
PROVIDERS: ATTEND Specialist
DX: M47.816 Spondylosis without myelopathy or radiculopathy, lumbar region (principal); M47.812 Spondylosis without myelopathy or radiculopathy, cervical region; M79.1 Myalgia; F17.200 Nicotine dependence, unspecified, uncomplicated; Z79.899 Other long term (current) drug therapy; Z79.82 Long term (current) use of aspirin; Z79.1 Long term (current) use of non-steroidal anti-inflammatories (NSAID)
CPT/HCPCS: 99211

== ENCOUNTER 2018-02-10 09:26 | Day surgery (SDC) | payer OTHER ==
[2018-02-04 10:05] VITALS: BMI 25.8
[2018-02-10 10:10] VITALS: RESP 16; TEMP 97.5
--- NOTE | 2018-02-10 11:40 | P.PCN ---
Date of Procedure: 02/10/18 Procedure(s) Performed: Procedure= trigger point injection right , trapezius muscles ,and rhomboid muscles,2 on the right side , and 3 on the left side. Preoperative diagnoses= myofascial pain syndrome and cervical area. Postoperative diagnoses= same as preop. Condition=stable. Complications=none. Indication for the procedure= chronic neck pain secondary to myofascial pain syndrome not responsive to the conservative treatment. Description of the procedure= the trigger point identified in the preop holding area it was 2 on the right side and 3 on the left side in the trapezius and rhomboid muscles, with the patient taken to the procedure room and placed in sitting position the neck area prepped with chlorhexidine 3 then under sterile technique each of the trigger point , injected from the mixture of ropivacaine 0.5% and 40 mg of Kenalog total of 10 ML used, 2 mL of the mixture, injected at each trigger point, after negative aspiration patient tolerated ,the procedure well without any complaint consultations,
[2018-02-10 11:45] VITALS: BP 145/92; PULSE 66
== END 2018-02-10 12:10 | disposition home or self-care (01) ==
LOC: ORPAIN 09:26
PROVIDERS: ATTEND Specialist
DX: M79.1 Myalgia (principal); G89.29 Other chronic pain; I10 Essential (primary) hypertension; J44.9 Chronic obstructive pulmonary disease, unspecified; K21.9 Gastro-esophageal reflux disease without esophagitis; Z88.2 Allergy status to sulfonamides
CPT/HCPCS: 20553; J3301

== ENCOUNTER → 2018-03-23 | Outpatient (CLI) | payer OTHER ==
[2018-03-23 12:28] VITALS: BP 177/103; PULSE 80; RESP 16
--- NOTE | 2018-03-23 13:19 | P.PAINPG ---
Subjective Progress Note Date: 03/23/18 This is follow-up visit for this 52 years old male with a chronic history of severe neck pain, and headache is diagnosed with cervical degenerative disc disease, cervical spondylosis, and myofascial pain syndrome and cervical area, we have done multiple pain intervention procedures in the past, cervical epidural steroid injections, medial branch block cervical area, trigger point injections, and patient gets only short-term benefit, he continued to have severe neck pain, and severe muscle spasm in the cervical area, currently on Robaxin 750 times a day, for the current medication is not helping him to control his pain, he denies any motor or sensory deficits he denies any fever or night sweats. He denies any change in the bowel movements or urination. Objective - Vital Signs Vital signs: Vital Signs Temp Pulse 80 03/23/18 12:17 Resp 16 03/23/18 12:17 BP 177/103 03/23/18 12:17 Pulse Ox 97 03/23/18 12:17 Intake & Output 03/22/18 03/23/18 03/23/18 18:59 06:59 18:59 Weight 81.647 kg - Constitutional Constitutional Comment(s): Physical Examinations : 1-Constitutiona : Cooperative , not in acute distress . 2-HEENT : nech ; supple , no Lymphadenopathy , normal thyroid size . eyes : no ptosis , no icterus, no photophobia . ENT : normal of hearing , normal oropharynx , no Thrush . 3- Respiratory : Chest clear to auscultations Bilaterally , no wheezing , no Rhonchi . 4- Cardiovascular : regular rate and rhythem , S1 , S2 , no S3 , no S4. 5- Gastrointestinal : abdomen soft no tenderness , bowel sounds , no organomegally . 6- Genitourinary : Defferred . 7- neurologic : Cranial nerve II to XII intact , no focal neurological deffecit . 8-psychatric : alert , oriented X 3 , appropriate affect , intact judgment and insight . 9-Lymphatic : no Lymphadenopathy . 10- musculoskeltal : Cervical Spine motor stregnth in the deltoid and biceps, normal right side , normal Left side motor stregnth biceps and the wrist extensors normal right side ,normal left side . motor stregnth in the triceps muscle . normal Right side , normal Left side deep tendon reflexes normal at the biceps , normal at Brachioradialis , normal at triceps. positive cervical facet loading test . Multiple trigger points in the cervical paravertebral muscles (trapezius and rhomboid and suprascapular ) Lumber spine moter stegnth lower extremities , thigh and legs 5/5 Right side , 5/5 Left side Assessment and Plan Plan: Assessment and plan= chronic severe neck pain Secondary to cervical degenerative disc disease, cervical spondylosis, myofascial pain syndrome and cervical area, patient had short-term benefit from interventional pain management, I discussed with the patient the option of referring him to a neurosurgeon for discussion about possible surgical intervention , as she refused to be referred for surgical evaluation, patient could benefit from physical therapy referral for physical therapy and was given, patient had no benefit from Robaxin, I will change it to Zanaflex 4 mg 3 times a day . She'll follow with the pain clinic when necessary. She'll follow up with his primary care regarding this hypertension, I explained to the patient that his blood pressure being high , patient will follow up with his primary care regarding his blood pressure management. Time with Patient: Less than 30 PQRS Measure Charge Sheet Measure #130: Documentation of Current Meds in Medical Chart: Patient's medications documented in chart Measure #226: Tobacco Use: Screen & Cessation Intervention: Pt screened for tobacco use AND intervention given Measure #111: Pneumonia Vaccination: Pneumococcal vaccine NOT administered or previously given Measure #47: Advance Care Plan: Advance care planning discussed & documented, pt chose/unable to give Measure #412: Opioid Treatment Agreement: No documentation of signed opioid treatment agreement Measure #408: Opioid Therapy Follow-up Evaluation: Patient had NO f/u eval minimum every 3 months during opioid therapy Measure #317: Preventitive Care & Scrn High Bld Press & F/U: Pre-hypertensive or hypertensive BP documented, pt will f/u with PCP Measure #128: Body Mass Index (BMI) Screening & Follow-up: BMI documented ABOVE normal parameters - f/u documented Measure #131: Pain Assessment & Follow-up: Pain positive & plan documented, Follow-up scheduled Measure #431: Unhealthy Alcohol Use Preventative Care & Scrn: Patient not identified as an unhealthy alcohol user PQRS Narrative: Smoking Status Current every day smoker Do You Want the Pneumonia No Vaccine AT THIS TIME? Blood Pressure 177/103 Pain Intensity [Bilateral 8 Lower Back] Scale Used Numeric (1 - 10) Hx Alcohol Use (MH) Yes: very rare Home Medications: Ambulatory Orders Albuterol Inhaler [Ventolin Hfa Inhaler] 1 - 2 puff INHALATION RT-Q6H PRN Beclomethasone Dipropionate [Qvar 40 mcg] 2 puff INHALATION RT-BID 07/16/16 Ipratropium [place] [Atrovent Hfa] 2 puff INHALATION RT-QID 07/16/16 Donepezil [Aricept] 10 mg PO HS 03/04/17 Sertraline [Zoloft] 50 mg PO HS 03/25/17 amLODIPine [Norvasc] 10 mg PO 1400 03/25/17 Metoprolol Tartrate 25 mg PO HS 03/30/17 Metoprolol Tartrate [Lopressor] 50 mg PO QAM 03/30/17 Aspirin 81 mg PO QAM 07/27/17 Celecoxib [CeleBREX] 200 mg PO DAILY PRN #30 cap 12/15/17 Methocarbamol [Robaxin] 750 mg PO TID PRN 30 Days #90 tab 12/15/17 Controlled Substance Measures - Controlled Substance Measures Is patient prescribed a controlled substance at discharge?: No When asked, does pt state using other controlled substances?: No If prescribed controlled substance>3 days was MAPS reviewed?: No If Rx opioid, was Start Talking consent form obtained?: No If opioid is for acute pain is fill amount 7 days or less?: No Was information provided regarding opioid addiction?: No
== END | disposition home or self-care (01) ==
LOC: PNWHC3 12:10
PROVIDERS: ATTEND Specialist
DX: G89.29 Other chronic pain (principal); R51 Headache; M50.30 Other cervical disc degeneration, unspecified cervical region; M47.812 Spondylosis without myelopathy or radiculopathy, cervical region; M79.18 Myalgia, other site; F17.200 Nicotine dependence, unspecified, uncomplicated; Z71.6 Tobacco abuse counseling; Z79.82 Long term (current) use of aspirin; Z79.1 Long term (current) use of non-steroidal anti-inflammatories (NSAID); Z79.899 Other long term (current) drug therapy
CPT/HCPCS: 99211

== ENCOUNTER → 2018-05-12 | Outpatient (CLI) | payer OTHER ==
--- NOTE | 2018-05-12 08:51 | US ---
EXAMINATION TYPE: US carotid duplex BILAT DATE OF EXAM: 05/12/2018 COMPARISON: NONE CLINICAL HISTORY: I16.0 Hypertensive urgency, R55 Syncope. EXAM MEASUREMENTS: RIGHT: Peak Systolic Velocity (PSV) cm/sec ----- Right CCA: 95.3 ----- Right ICA: 94.4 ----- Right ECA: 125 ICA/CCA ratio: 1.0 RIGHT: End Diastole cm/sec ----- Right CCA: 29.5 ----- Right ICA: 38.1 ----- Right ECA: 34.7 LEFT: Peak Systolic Velocity (PSV) cm/sec ----- Left CCA: 97.0 ----- Left ICA: 94.4 ----- Left ECA: 125 ICA/CCA ratio: 1.0 LEFT: End Diastole cm/sec ----- Left CCA: 28.6 ----- Left ICA: 37.3 ----- Left ECA: 34.7 VERTEBRALS (direction of flow): Right Vertebral: Antegrade Left Vertebral: Antegrade Rhythm: Normal IMPRESSION: Mild amount of plaque in bilateral bulbs, no elevated velocities, no significant stenosis . Criteria for Assigning % of Stenosis / Diameter reduction (Estimation based on the indirect measurements of the internal carotid artery velocities (ICA PSV). 1. Normal (no stenosis)=ICA PSV < 125 cm/s: ratio < 2.0: ICA EDV<40 cm/s. 2. Less than 50% stenosis=ICA PSV < 125 cm/s: ratio < 2.0: ICA EDV<40 cm/s. 3. 50 to 69% stenosis=ICA PSV of 125 to 230 cm/s: ration 2.0 ? 4.0: ICA EDV 40-100 cm/s. 4. Greater than 70% stenosis to near occlusion= ICA PSV > 230 cm/s: ratio > 4.0: ICA EDV > 100 cm/s. 5. Near occlusion= ICA PSV velocities may be low or undetectable: variable ratio and ICA EDV. 6. Total occlusion=unable to detect flow.
== END | disposition home or self-care (01) ==
LOC: RADUSWWP 08:08
PROVIDERS: ATTEND Family Medicine
DX: I65.23 Occlusion and stenosis of bilateral carotid arteries (principal)
CPT/HCPCS: 93880

== ENCOUNTER → 2018-07-28 | Outpatient (CLI) | payer OTHER ==
--- NOTE | 2018-07-28 11:49 | XR ---
EXAMINATION TYPE: XR chest 2V DATE OF EXAM: 07/28/2018 COMPARISON: 07/16/2016 TECHNIQUE: PA and lateral views submitted. HISTORY: Shortness of breath FINDINGS: There is an vague area of increased density within the right upper lobe most likely in the basis of a small area of focal pneumonia. Neoplasm not excluded. Left lung clear. No interstitial edema. Arthro agata of the shoulders noted. IMPRESSION: 1. No localized area of consolidation right upper lobe. Pneumonia is suggested. Follow-up to resoluti on to exclude underlying neoplasm. Report called to the referring physician. A Hendricks level critical message alert has been initiated for Mohit Chanel MD via the [employer] Critical Results System on 07/28/2018 11:47 AM. This message alert has been sent to Mohit medrano MD via the preferences provided by the clinician for the receipt of Radiology Critical Findings . Message ID [id number].
== END | disposition home or self-care (01) ==
LOC: RADXRMAIN 11:09
PROVIDERS: ATTEND Internal Medicine Interventional Cardiology
DX: R07.9 Chest pain, unspecified (principal); R06.02 Shortness of breath; Z88.2 Allergy status to sulfonamides
CPT/HCPCS: 71046

== ENCOUNTER → 2018-08-05 | Outpatient (CLI) | payer OTHER ==
--- NOTE | 2018-08-05 15:58 | CT ---
EXAMINATION TYPE: CT chest wo con DATE OF EXAM: 08/05/2018 COMPARISON: Chest x-ray 07/28/2017, prior chest CT 09/12/2015 HISTORY: Abnormal chest xray. Acute pneumonia. CT DLP: 501 mGycm. Automated Exposure Control for Dose Reduction was Utilized. TECHNIQUE: CT scan of the thorax is performed without IV contrast. FINDINGS: Lack of intravenous contrast could compromise sensitivity of the exam. LUNGS: The lungs are remarkable for spiculated right upper lobe mass which extends the pleural surface on the right and m easures approximately 2.7 x 2.3 x 2 cm and abuts the minor fissure in the right upper lobe. Thicken ed parenchymal bands are present in the right lower lobe. There is no pleural effusion or pneumothora x seen. The tracheobronchial tree is patent. MEDIASTINUM: Lack of IV contrast is noted to limit evaluation for mediastinal and especially hilar ad enopathy. There are no definitive greater than 1 cm hilar or mediastinal lymph nodes. No cardiomega ly or pericardial effusion is seen. OTHER: There are coronary artery calcifications. IMPRESSION: Right upper lobe mass worrisome for bronchogenic carcinoma. Report relayed telephonically at the time of interpretation the exam to the referring clinician.
== END | disposition home or self-care (01) ==
LOC: RADCTMAIN 13:35
PROVIDERS: ATTEND Internal Medicine Pulmonary Disease
DX: R91.8 Other nonspecific abnormal finding of lung field (principal); J18.9 Pneumonia, unspecified organism
CPT/HCPCS: 71250

== ENCOUNTER → 2018-08-18 | Outpatient (CLI) | payer OTHER ==
--- NOTE | 2018-08-18 12:28 | CT ---
EXAMINATION TYPE: CT chest wo con DATE OF EXAM: 08/18/2018 COMPARISON: Chest CT August 05, [address] September 12, 2015 HISTORY: Dyspnea, lung mass, emphysema, and pneumonia all per technologist. CT DLP: 414 mGycm. Automated Exposure Control for Dose Reduction was Utilized. TECHNIQUE: CT scan of the thorax is performed without IV contrast. FINDINGS: LUNGS: Spiculated masslike consolidation inferior right upper lobe is slightly improved or less promi nent with some central linear air axial image 28 measuring 2.0 x 1.7 cm current study. Remainder of b oth lungs are clear. No pleural effusion or pneumothorax is noted bilaterally. MEDIASTINUM: Lack of IV contrast is noted to limit evaluation for mediastinal and especially hilar ad enopathy. There are no definitive greater than 1 cm hilar or mediastinal lymph nodes. No cardiomega ly or pericardial effusion is seen. Moderate coronary artery calcification is redemonstrated which is noted marker for underlying coronary artery disease. OTHER: Stable small splenule in splenic hilum. Stable low density as spleen consistent with diffuse f atty infiltration. IMPRESSION: Improving but not resolved spiculated right upper lobe nodule or nodular consolidation co uld reflect improving pneumonia but neoplasm cannot be excluded. Advise PET CT follow-up.
== END | disposition home or self-care (01) ==
LOC: RADCTMAIN 11:11
PROVIDERS: ATTEND Internal Medicine Pulmonary Disease
DX: R06.00 Dyspnea, unspecified (principal); R91.8 Other nonspecific abnormal finding of lung field; J43.8 Other emphysema; J18.9 Pneumonia, unspecified organism
CPT/HCPCS: 71250

== ENCOUNTER → 2018-10-02 | Outpatient (CLI) | payer OTHER ==
--- NOTE | 2018-10-03 14:10 | PE ---
Nuclear medicine PET/CT HISTORY: Lung mass, initial Patient received 12.6 mCi F-18 FDG intravenously in delayed scanning was performed from the skull bas e to the mid thighs. Localization and attenuation correction CT scan was performed. Correlation to chest CT 08/18/2018 neck and chest: There is no evident cervical adenopathy, no axillary, hilar, or mediastinal adenopath y. Emphysematous changes are significant within the lungs. Stellate density in the right upper lobe m easures 1 cm in anterior to posterior dimension has decreased in size as compared to prior CT and the re is no associated hypermetabolic uptake. No additional abnormality is present within the lungs. ABDOMEN: Liver shows low attenuation possibly due to hepatic steatosis. No adrenal mass or retroperit aldridge adenopathy. No suspicious hypermetabolic uptake. There is a left inguinal hernia containing fat. Prostate is enlarged and shows an inferior impression on the urinary bladder, urinary bladder shows a thickened wall likely due to chronic outlet obstruct ion. Osseous structures show no suspicious hypermetabolic uptake. IMPRESSION: There is improvement in patient's right upper lobe lung mass. No suspicious hypermetaboli c uptake.
== END | disposition home or self-care (01) ==
LOC: RADPETMAIN 11:55
PROVIDERS: ATTEND Internal Medicine Pulmonary Disease
DX: R91.8 Other nonspecific abnormal finding of lung field (principal)
CPT/HCPCS: 78815; A9552

== ENCOUNTER → 2019-01-24 | Outpatient (CLI) | payer OTHER ==
--- NOTE | 2019-01-24 16:29 | MR ---
MRI CERVICAL SPINE: CLINICAL HISTORY: Chronic neck pain and degeneration of intervertebral disc per order. Headache with neck pain for 5 years causing pain or weakness into both arms and fingers per patient. TECHNIQUE: Multiplanar, multisequence imaging of the cervical spine is performed without IV contrast. COMPARISON: MRI cervical spine October 06, 2016.. FINDINGS: Sagittal images of the cervical spine show the craniocervical junction to remain within nor mal limits. The cervical and upper thoracic spinal cord remains normal in course, caliber, and signa l. Stable grade 1 retrolisthesis of C5 on C6. The vertebral body heights remain normal. Stable mild multilevel disc space narrowing most prominent C5-C6 level. The bone marrow signal intensity is with in normal limits. Axial images at C2-C3 level redemonstrate right-sided uncovertebral facet degenerative change causing mild right-sided narrowing. No significant change from prior. Axial images at C3-C4 level shows central disc protrusion mildly effacing the anterior thecal sac wit h uncovertebral facet degenerative changes causing mild right-sided neural foraminal narrowing. No si gnificant change from prior. Axial images at C4-C5 level shows broad-based central disc protrusion effacing the anterior thecal sa c with uncovertebral facet degenerative changes causing mild to moderate right greater than left bila teral neural foraminal narrowing. No significant change from prior. Axial images at C5-C6 levels with spondylolisthesis with broad-based posterior disc protrusion efface s the anterior thecal sac and causing mild left-sided neural foraminal narrowing. No significant bryson ge from prior. Axial images at C6-C7 level shows a left paracentral disc protrusion effacing and throughout thecal s ac, bilateral neural foramina are patent. No significant change from prior. Axial images at C7-T1 level are felt within normal limits. IMPRESSION: Multilevel degenerative changes in the cervical spine as detailed above without significa nt progression from 2017 MRI.
== END | disposition home or self-care (01) ==
LOC: RADMRIMAIN 15:16
PROVIDERS: ATTEND Family Medicine
DX: M47.892 Other spondylosis, cervical region (principal); M50.30 Other cervical disc degeneration, unspecified cervical region; M54.10 Radiculopathy, site unspecified
CPT/HCPCS: 72141

== ENCOUNTER → 2019-03-01 | Outpatient (CLI) | payer OTHER ==
[2019-03-01 16:48] LABS: Anion Gap 10.9 mmol/L (4.00-12.00); Carbon Dioxide 20.1 mmol/L (21.6-31.8); Potassium 5.2 mmol/L (3.5-5.5)
== END | disposition home or self-care (01) ==
LOC: LABWHC1 08:20
PROVIDERS: ATTEND Family Medicine
DX: E87.5 Hyperkalemia (principal)
CPT/HCPCS: 36415; 80051

== ENCOUNTER → 2019-03-01 | Outpatient (CLI) | payer OTHER ==
--- NOTE | 2019-03-01 08:50 | CT ---
EXAMINATION TYPE: CT chest wo con DATE OF EXAM: 03/01/2019 COMPARISON: 10/02/2018, 08/05/2018, 09/12/2015 HISTORY: 53-year-old male lung mass TECHNIQUE: Contiguous axial scanning of the chest without IV contrast. Coronal and sagittal reconstru ctions performed. CT DLP: 340.6 mGycm Automated exposure control for dose reduction was used. FINDINGS: Heart normal size without pericardial effusion. Coronary vessel calcifications are present. Aorta normal caliber with conventional arch vessel branching anatomy. No thoracic lymphadenopathy CT size criteria. Mild diffuse bronchial wall thickening and mild upper lung centrilobular emphysema. Right mid lung, upper lobe irregular nodule measures 1.1 x 0.7 cm abutting the minor fissure. This is in comparison to 1.2 x 0.7 cm on 10/02/2018 and 2.6 x 2.3 cm on 08/05/2018. No new pulmonary nodules, consolidation, or pleural effusion. Visualized upper abdomen shows a hilar splenule. Bones: No osseous destructive process. IMPRESSION: 1. THE RIGHT MIDLUNG IRREGULAR NODULE IS STABLE FROM THE PATIENT'S PET/CT OF 10/02/2018 (11 X 7 MM AMANDA LAKSHMI 12 X 7 MM, PREVIOUSLY). THIS IS IN COMPARISON TO 2.6 X 2.3 CM BACK ON 08/05/2018. ADDITIONAL FOLLO W-UP IS INDICATED. 2. NO NEW NODULES OR THORACIC LYMPHADENOPATHY.
== END | disposition home or self-care (01) ==
LOC: RADCTMAIN 08:07
PROVIDERS: ATTEND Internal Medicine Pulmonary Disease
DX: R91.8 Other nonspecific abnormal finding of lung field (principal); Z88.2 Allergy status to sulfonamides
CPT/HCPCS: 71250

== ENCOUNTER → 2019-07-06 | Outpatient (CLI) | payer OTHER ==
--- NOTE | 2019-07-06 12:48 | US ---
EXAMINATION TYPE: US venous doppler duplex LE RT DATE OF EXAM: 07/06/2019 12:11 PM COMPARISON: NONE CLINICAL HISTORY: M79.604 pain in rt leg. SIDE PERFORMED: RT TECHNIQUE: The lower extremity deep venous system is examined utilizing real time linear array sonog vicky with graded compression, doppler sonography and color-flow sonography. VESSELS IMAGED: External Iliac Vein (EIV) Common Femoral Vein Deep Femoral Vein Greater Saphenous Vein * Femoral Vein Popliteal Vein Small Saphenous Vein * Proximal Calf Veins (* superficial vessels) Grayscale, color doppler, spectral doppler imaging performed of the deep veins of the right lower ext remity. There is normal flow, compressibility, vascular waveforms. Right Leg: Negative for DVT Preliminary results given to Rosemary at 's office. IMPRESSION: No sonographic evidence of deep venous thrombosis within the right lower extremity.
--- NOTE | 2019-07-06 14:45 | XR ---
Lumbar spine HISTORY: Low back pain 3 views the lumbar spine Lumbar vertebral bodies show preserved height, alignment are normal. There is multilevel spondylosis. Some loss of disc height is mild at intervertebral levels. Bone mineralization is reduced. There is sclerosis in the posterior elements of the lumbar spine. IMPRESSION: Degenerative disc disease and facet arthropathy. Suspect possible osteopenia.
== END | disposition home or self-care (01) ==
LOC: RADUSWWP 11:44
PROVIDERS: ATTEND Internal Medicine Pulmonary Disease
DX: M51.37 Other intervertebral disc degeneration, lumbosacral region (principal); M46.97 Unspecified inflammatory spondylopathy, lumbosacral region; M79.604 Pain in right leg; Z88.2 Allergy status to sulfonamides
CPT/HCPCS: 72100